=== PATIENT | male | born 1950 | race Caucasian/White ===

== ENCOUNTER → 2016-04-28 | Outpatient (CLI) | payer BC ==
[~2016-04-28] MED LIST: ASPI81TA85 PO; DICL13PA TD; GABA300C3 PO; GLIP10TA58 PO; IBUP200T45 PO; IBUP80TA PO; LANTINJ4 SC; LISI10TA4 PO; METF1000 PO; MOBI15TA PO; PERC5TAB6 PO; PRIL20CA9 PO; ROBA750T4 PO; SOMA350T PO; TYLE325T5 PO; VALI5TAB PO; VITA50003 PO; VITA500046 PO; muscle relaxer PO
[2016-04-28 11:03] LABS: ANION GAP 9 MEQ/L (8-16); BLOOD UREA NITROGEN 16 MG/DL (7-18); CALCIUM LEVEL 9.4 MG/DL (8.8-10.2); CARBON DIOXIDE LEVEL 30 MEQ/L (21-32); CHLORIDE LEVEL 100 MEQ/L (98-107); CREATININE FOR GFR 1.14 MG/DL (0.70-1.30); GLOMERULAR FILTRATION RATE > 60.0 (>49); GLUCOSE, FASTING 81 MG/DL (80-110); SODIUM LEVEL 139 MEQ/L (136-145)
== END ==
LOC: M LAB 10:20
PROVIDERS: ATTEND Family Medicine
DX: E11.65 Type 2 diabetes mellitus with hyperglycemia (principal)

== ENCOUNTER → 2016-09-30 | Outpatient (CLI) | payer BC ==
[~2016-09-30] MED LIST changes: +GABA-282 PO; -GABA300C3 PO; -GLIP10TA58 PO; +GLIP1TAB11 PO; -METF1000 PO; +METF10004 PO; +PERC5TAB12 PO; -PERC5TAB6 PO; +VITA1CAP40 PO; -VITA50003 PO
[2016-09-30 11:33] LABS: ANION GAP 5 MEQ/L (8-16); BLOOD UREA NITROGEN 22 MG/DL (7-18); CALCIUM LEVEL 9.3 MG/DL (8.8-10.2); CARBON DIOXIDE LEVEL 30 MEQ/L (21-32); CHLORIDE LEVEL 103 MEQ/L (98-107); CREATININE FOR GFR 1.13 MG/DL (0.70-1.30); GLOMERULAR FILTRATION RATE > 60.0 (>49); GLUCOSE, FASTING 75 MG/DL (80-110); POTASSIUM SERUM 4.8 MEQ/L (3.5-5.1); SODIUM LEVEL 138 MEQ/L (136-145)
== END ==
LOC: M LAB 10:34
PROVIDERS: ATTEND Family Medicine
DX: E11.65 Type 2 diabetes mellitus with hyperglycemia (principal)

== ENCOUNTER → 2016-11-16 | Outpatient (CLI) | payer BC | LOC: M WUC 16:11 | PROVIDERS: ATTEND Family Medicine | DX: R43.9 Unspecified disturbances of smell and taste (principal) ==

== ENCOUNTER → 2016-11-16 | Outpatient (REF) | payer BC | LOC: M SFHCADAM 15:08 | PROVIDERS: ATTEND Family Medicine | DX: R43.9 Unspecified disturbances of smell and taste (principal) ==

== ENCOUNTER → 2017-01-06 | Outpatient (CLI) | payer BC ==
[2017-01-06 10:50] LABS: ANION GAP 7 MEQ/L (8-16); BLOOD UREA NITROGEN 18 MG/DL (7-18); CALCIUM LEVEL 9.5 MG/DL (8.8-10.2); CARBON DIOXIDE LEVEL 29 MEQ/L (21-32); CHLORIDE LEVEL 103 MEQ/L (98-107); CREATININE FOR GFR 1.16 MG/DL (0.70-1.30); GLOMERULAR FILTRATION RATE > 60.0 (>49); GLUCOSE, FASTING 93 MG/DL (80-110); POTASSIUM SERUM 4.1 MEQ/L (3.5-5.1); SODIUM LEVEL 139 MEQ/L (136-145)
== END ==
LOC: M LAB 09:40
PROVIDERS: ATTEND Family Medicine
DX: E11.65 Type 2 diabetes mellitus with hyperglycemia (principal)

== ENCOUNTER 2017-04-20 12:14 | Emergency (ER) | payer OTHER, BC ==
[2017-04-20] MEDS: ONDANSETRON 4MG/2ML VIAL (J2405) IV (12:25)
[2017-04-20] MEDS: MORPHINE 4 MG/ML 1ML SYRINGE IV ×3 (12:26→16:02)
[2017-04-20 12:31] LABS: HEMOGLOBIN 12.6 g/dl (14.0-18.0); MEAN CORPUSCULAR HEMOGLOBIN 24.9 pg (27.0-33.0); MEAN CORPUSCULAR HGB CONC 31.5 g/dl (32.0-36.5); MEAN CORPUSCULAR VOLUME 78.9 fl (80.0-96.0); PLATELET COUNT, AUTOMATED 303 10^3/uL (150-450); RED BLOOD COUNT 5.07 10^6/uL (4.30-6.10); RED CELL DISTRIBUTION WIDTH 15.1 % (11.5-14.5); WHITE BLOOD COUNT 10.7 10^3/uL (4.0-10.0)
[2017-04-20 12:45] LABS: INR 0.95; PROTHROMBIN TIME 12.8 SECONDS (12.4-14.5)
[2017-04-20 13:08] LABS: ANION GAP 12 MEQ/L (8-16); BLOOD UREA NITROGEN 22 MG/DL (7-18); CALCIUM LEVEL 9.7 MG/DL (8.8-10.2); CARBON DIOXIDE LEVEL 26 MEQ/L (21-32); CHLORIDE LEVEL 101 MEQ/L (98-107); CREATININE FOR GFR 1.44 MG/DL (0.70-1.30); GLOMERULAR FILTRATION RATE 52.4 (>49); GLUCOSE, FASTING 122 MG/DL (80-110); POTASSIUM SERUM 3.3 MEQ/L (3.5-5.1); SODIUM LEVEL 139 MEQ/L (136-145)
== END 2017-04-20 16:06 | disposition short-term general hospital (02) ==
LOC: M ED 12:14
DX: S82.871A Displaced pilon fracture of right tibia, initial encounter for closed fracture (principal); M51.36 Other intervertebral disc degeneration, lumbar region; M51.37 Other intervertebral disc degeneration, lumbosacral region; M48.061 Spinal stenosis, lumbar region without neurogenic claudication; M48.07 Spinal stenosis, lumbosacral region; W19.XXXA Unspecified fall, initial encounter; Y92.099 Unspecified place in other non-institutional residence as the place of occurrence of the external cause; Y93.9 Activity, unspecified; E11.9 Type 2 diabetes mellitus without complications; I10 Essential (primary) hypertension; Z79.82 Long term (current) use of aspirin; Z79.4 Long term (current) use of insulin; Z79.899 Other long term (current) drug therapy
CPT/HCPCS: J2405

== ENCOUNTER 2017-05-10 14:01 | Observation (INO) | payer OTHER ==
[2017-05-10 15:33] LABS: BASO # 0.1 10^3/uL (0.0-0.2); BASO % 0.9 % (0.0-1.0); EOS # 0.3 10^3/uL (0.0-0.50); EOS % 2.9 % (0.0-3.0); HEMATOCRIT 39.9 % (42.0-52.0); HEMOGLOBIN 12.3 g/dl (14.0-18.0); IMMATURE GRANULOCYTE % 0.5 % (0-3.0); LYMPH # 1.8 10^3/uL (1.5-4.5); LYMPH % 21.4 % (24.0-44.0); MEAN CORPUSCULAR HEMOGLOBIN 24.3 pg (27.0-33.0); MEAN CORPUSCULAR HGB CONC 30.8 g/dl (32.0-36.5); MEAN CORPUSCULAR VOLUME 78.7 fl (80.0-96.0); MONO # 0.8 10^3/uL (0.0-0.8); NEUTROPHILS # 5.5 10^3/uL (1.8-7.7); NEUTROPHILS % 65.3 % (36.0-66.0); PLATELET COUNT, AUTOMATED 475 10^3/uL (150-450); RED BLOOD COUNT 5.07 10^6/uL (4.30-6.10); WHITE BLOOD COUNT 8.5 10^3/uL (4.0-10.0)
[2017-05-10 15:59] LABS: ALBUMIN 4.1 GM/DL (3.2-5.2); ALBUMIN/GLOBULIN RATIO 1.03 (1.00-1.93); ALKALINE PHOSPHATASE 91 U/L (45-117); ALT/SGPT 27 U/L (12-78); ANION GAP 8 MEQ/L (8-16); AST/SGOT 17 U/L (7-37); BILIRUBIN,DIRECT < 0.1 MG/DL (0.0-0.2); BILIRUBIN,TOTAL 0.3 MG/DL (0.2-1.0); BLOOD UREA NITROGEN 23 MG/DL (7-18); C REACTIVE PROTEIN QUANTITATIV 1.71 MG/DL (0.00-0.30); CALCIUM LEVEL 9.8 MG/DL (8.8-10.2); CARBON DIOXIDE LEVEL 28 MEQ/L (21-32); CHLORIDE LEVEL 102 MEQ/L (98-107); CREATININE FOR GFR 1.13 MG/DL (0.70-1.30); GLOMERULAR FILTRATION RATE > 60.0 (>49); GLUCOSE, FASTING 107 MG/DL (70-100); POTASSIUM SERUM 4.3 MEQ/L (3.5-5.1); SODIUM LEVEL 138 MEQ/L (136-145); TOTAL PROTEIN 8.1 GM/DL (6.4-8.2)
[2017-05-10 16:47] LABS: ERYTHROCYTE SEDIMENTATION RATE 28 mm/hr (0-20)
[2017-05-10] MEDS: CEFAZOLIN SOD 1 GM in APPROPRIATE DILUENT 1 EA IV (18:49)
[2017-05-10] MEDS ORDERED: GLUCAGON FOR INJ 1 MG VIAL (J1610) SC (19:45)
[2017-05-10] MEDS ORDERED: ONDANSETRON 4MG/2ML VIAL (J2405) IV (19:45)
[2017-05-10] MEDS ORDERED: GLUCOSE 4 GM CHEW TABLET PO (19:45)
[2017-05-10] MEDS ORDERED: DEXTROSE 50% 50 ML SYRINGE IV (19:45)
[2017-05-10] MEDS: PERCOCET 5MG/325MG TAB PO (20:11)
[2017-05-10] MEDS: HumaLOG INSULIN (NovoLOG) PER UNIT SC (21:00)
[2017-05-10] MEDS: LEVEMIR (INSULIN DETEMIR) 1 UNITS/0.01ML SC (21:00)
[2017-05-10] MEDS: HEPARIN SOD (PORCINE) 5000 UNITS/ML VIAL SC (22:04)
[2017-05-10] MEDS: OMEPRAZOLE 20 MG CAP PO (22:04)
[2017-05-10 22:05] LABS: BEDSIDE GLUCOSE 113 MG/DL (80-115)
[2017-05-10] MEDS: SENOKOT S TAB PO (22:05)
[2017-05-10] MEDS: VALSARTAN 80 MG TAB (DIOVAN) PO (22:05)
[2017-05-10] MEDS: CEFTAROLINE FOSAMIL 600 MG in D5W MINI-BAG PLUS 50 ML IV (22:20)
[2017-05-10] MEDS: ASPIRIN ENTERIC 325 MG TAB PO (22:21)
[2017-05-11 03:51] LABS: BEDSIDE GLUCOSE 55 MG/DL (80-115)
[2017-05-11 04:09] LABS: BEDSIDE GLUCOSE 81 MG/DL (80-115)
[2017-05-11 04:44] LABS: BEDSIDE GLUCOSE 110 MG/DL (80-115)
[2017-05-11] MEDS: HEPARIN SOD (PORCINE) 5000 UNITS/ML VIAL SC ×3 (05:09→21:21)
[2017-05-11 06:31] LABS: HEMATOCRIT 35.7 % (42.0-52.0); HEMOGLOBIN 11.2 g/dl (14.0-18.0); MEAN CORPUSCULAR HEMOGLOBIN 24.5 pg (27.0-33.0); MEAN CORPUSCULAR HGB CONC 31.4 g/dl (32.0-36.5); MEAN CORPUSCULAR VOLUME 78.1 fl (80.0-96.0); PLATELET COUNT, AUTOMATED 413 10^3/uL (150-450); RED BLOOD COUNT 4.57 10^6/uL (4.30-6.10); RED CELL DISTRIBUTION WIDTH 15.1 % (11.5-14.5); WHITE BLOOD COUNT 9.2 10^3/uL (4.0-10.0)
[2017-05-11 07:07] LABS: ANION GAP 9 MEQ/L (8-16); BLOOD UREA NITROGEN 22 MG/DL (7-18); C REACTIVE PROTEIN QUANTITATIV 1.59 MG/DL (0.00-0.30); CALCIUM LEVEL 9.7 MG/DL (8.8-10.2); CARBON DIOXIDE LEVEL 29 MEQ/L (21-32); CHLORIDE LEVEL 100 MEQ/L (98-107); GLOMERULAR FILTRATION RATE > 60.0 (>49); GLUCOSE, FASTING 115 MG/DL (70-100); MAGNESIUM LEVEL 2.1 MG/DL (1.8-2.4); POTASSIUM SERUM 4.4 MEQ/L (3.5-5.1); SODIUM LEVEL 138 MEQ/L (136-145)
[2017-05-11] MEDS: HumaLOG INSULIN (NovoLOG) PER UNIT SC ×4 (07:30→20:23)
[2017-05-11] MEDS: CEFTAROLINE FOSAMIL 600 MG in D5W MINI-BAG PLUS 50 ML IV ×2 (08:24→21:21)
[2017-05-11] MEDS: OMEPRAZOLE 20 MG CAP PO ×2 (08:24→21:22)
[2017-05-11] MEDS: SENOKOT S TAB PO ×2 (08:24→21:22)
[2017-05-11] MEDS: VITAMIN D 1,000 INTERNATIONAL UNITS TABLET PO (08:24)
[2017-05-11] MEDS: PERCOCET 5MG/325MG TAB PO ×3 (08:30→23:06)
[2017-05-11 12:20] LABS: BEDSIDE GLUCOSE 116 MG/DL (80-115)
[2017-05-11 17:12] LABS: BEDSIDE GLUCOSE 129 MG/DL (80-115)
[2017-05-11 20:21] LABS: BEDSIDE GLUCOSE 160 MG/DL (80-115)
[2017-05-11] MEDS: LEVEMIR (INSULIN DETEMIR) 1 UNITS/0.01ML SC (21:00)
[2017-05-11] MEDS: VALSARTAN 80 MG TAB (DIOVAN) PO (21:21)
[2017-05-11] MEDS: ASPIRIN ENTERIC 325 MG TAB PO (21:27)
[2017-05-12 01:15] LABS: BEDSIDE GLUCOSE 138 MG/DL (80-115)
[2017-05-12] MEDS: HEPARIN SOD (PORCINE) 5000 UNITS/ML VIAL SC (05:52)
[2017-05-12 06:46] LABS: BASO # 0.1 10^3/uL (0.0-0.2); BASO % 1.3 % (0.0-1.0); EOS # 0.3 10^3/uL (0.0-0.50); EOS % 3.8 % (0.0-3.0); HEMATOCRIT 37.4 % (42.0-52.0); HEMOGLOBIN 11.7 g/dl (14.0-18.0); IMMATURE GRANULOCYTE % 0.4 % (0-3.0); LYMPH # 2.3 10^3/uL (1.5-4.5); LYMPH % 31.8 % (24.0-44.0); MEAN CORPUSCULAR HEMOGLOBIN 24.7 pg (27.0-33.0); MEAN CORPUSCULAR HGB CONC 31.3 g/dl (32.0-36.5); MEAN CORPUSCULAR VOLUME 78.9 fl (80.0-96.0); MONO # 0.9 10^3/uL (0.0-0.8); MONO % 12.3 % (0.0-5.0); NEUTROPHILS # 3.6 10^3/uL (1.8-7.7); NEUTROPHILS % 50.4 % (36.0-66.0); PLATELET COUNT, AUTOMATED 384 10^3/uL (150-450); RED BLOOD COUNT 4.74 10^6/uL (4.30-6.10); WHITE BLOOD COUNT 7.1 10^3/uL (4.0-10.0)
[2017-05-12 07:05] LABS: ANION GAP 5 MEQ/L (8-16); BLOOD UREA NITROGEN 22 MG/DL (7-18); C REACTIVE PROTEIN QUANTITATIV 1.33 MG/DL (0.00-0.30); CALCIUM LEVEL 9.7 MG/DL (8.8-10.2); CARBON DIOXIDE LEVEL 31 MEQ/L (21-32); CHLORIDE LEVEL 102 MEQ/L (98-107); CREATININE FOR GFR 1.21 MG/DL (0.70-1.30); GLOMERULAR FILTRATION RATE > 60.0 (>49); GLUCOSE, FASTING 65 MG/DL (70-100); MAGNESIUM LEVEL 2.2 MG/DL (1.8-2.4); POTASSIUM SERUM 5.1 MEQ/L (3.5-5.1); SODIUM LEVEL 138 MEQ/L (136-145)
[2017-05-12] MEDS: HumaLOG INSULIN (NovoLOG) PER UNIT SC (07:28)
[2017-05-12] MEDS: LEVEMIR (INSULIN DETEMIR) 1 UNITS/0.01ML SC (09:00)
[2017-05-12] MEDS: CEFTAROLINE FOSAMIL 600 MG in D5W MINI-BAG PLUS 50 ML IV (09:41)
[2017-05-12] MEDS: VITAMIN D 1,000 INTERNATIONAL UNITS TABLET PO (09:42)
[2017-05-12] MEDS: OMEPRAZOLE 20 MG CAP PO (09:42)
[2017-05-12] MEDS: SENOKOT S TAB PO (09:42)
[2017-05-12] MEDS: PERCOCET 5MG/325MG TAB PO (11:29)
[2017-05-12] MEDS: EUCERIN 120GM CREAM TOP (11:30)
[2017-05-12 12:25] LABS: BEDSIDE GLUCOSE 139 MG/DL (80-115)
[2017-05-12] MEDS ORDERED: BACTRIM 160MG/800MG DS TAB PO (21:00)
== END 2017-05-12 14:15 | disposition home or self-care (01) ==
LOC: M ED 14:01 → M ED INP 19:36 → M MS4PR 21:47
DX: L03.115 Cellulitis of right lower limb (principal); E11.628 Type 2 diabetes mellitus with other skin complications; I10 Essential (primary) hypertension; K21.9 Gastro-esophageal reflux disease without esophagitis; S82.451A Displaced comminuted fracture of shaft of right fibula, initial encounter for closed fracture; W11.XXXA Fall on and from ladder, initial encounter; Y92.89 Other specified places as the place of occurrence of the external cause; E11.649 Type 2 diabetes mellitus with hypoglycemia without coma; E78.5 Hyperlipidemia, unspecified; E88.81 Metabolic syndrome and other insulin resistance; M51.9 Unspecified thoracic, thoracolumbar and lumbosacral intervertebral disc disorder; Z79.899 Other long term (current) drug therapy; Z79.82 Long term (current) use of aspirin; Z79.4 Long term (current) use of insulin
CPT/HCPCS: J0690

== ENCOUNTER → 2017-09-21 | Outpatient (CLI) | payer OTHER ==
[2017-09-21 10:22] LABS: HEMATOCRIT 40.4 % (42.0-52.0); HEMOGLOBIN 12.9 g/dl (13.5-17.5); MEAN CORPUSCULAR HEMOGLOBIN 24.6 pg (27.0-33.0); MEAN CORPUSCULAR HGB CONC 31.9 g/dl (32.0-36.5); MEAN CORPUSCULAR VOLUME 77.1 fl (80.0-96.0); PLATELET COUNT, AUTOMATED 299 10^3/uL (150-450); RED BLOOD COUNT 5.24 10^6/uL (4.30-6.10); RED CELL DISTRIBUTION WIDTH 14.9 % (11.5-14.5); WHITE BLOOD COUNT 7.3 10^3/uL (4.0-10.0)
[2017-09-21 10:44] LABS: ALKALINE PHOSPHATASE 111 U/L (45-117); ALT/SGPT 30 U/L (12-78); ANION GAP 7 MEQ/L (8-16); AST/SGOT 18 U/L (7-37); BILIRUBIN,TOTAL 0.4 MG/DL (0.2-1.0); BLOOD UREA NITROGEN 20 MG/DL (7-18); CALCIUM LEVEL 9.4 MG/DL (8.8-10.2); CARBON DIOXIDE LEVEL 30 MEQ/L (21-32); CHLORIDE LEVEL 101 MEQ/L (98-107); CREATININE FOR GFR 1.13 MG/DL (0.70-1.30); GLOMERULAR FILTRATION RATE > 60.0 (>49); GLUCOSE, FASTING 162 MG/DL (70-100); POTASSIUM SERUM 4.6 MEQ/L (3.5-5.1); SODIUM LEVEL 138 MEQ/L (136-145); TOTAL PROTEIN 7.8 GM/DL (6.4-8.2)
[2017-09-21 10:45] LABS: ALBUMIN 4.1 GM/DL (3.2-5.2); ALBUMIN/GLOBULIN RATIO 1.11 (1.00-1.93)
[2017-09-21 10:50] LABS: ESTIMATED AVERAGE GLUCOSE 197 MG/DL (60-110); HEMOGLOBIN A1c 8.5 %
== END ==
LOC: M LAB 09:41
DX: E11.65 Type 2 diabetes mellitus with hyperglycemia (principal); L03.115 Cellulitis of right lower limb
CPT/HCPCS: 80053

== ENCOUNTER → 2017-12-30 | Outpatient (CLI) | payer OTHER ==
[2017-12-30 09:34] LABS: ANION GAP 10 MEQ/L (8-16); BLOOD UREA NITROGEN 27 MG/DL (7-18); CALCIUM LEVEL 9.9 MG/DL (8.8-10.2); CARBON DIOXIDE LEVEL 27 MEQ/L (21-32); CHLORIDE LEVEL 102 MEQ/L (98-107); CREATININE FOR GFR 1.05 MG/DL (0.70-1.30); ESTIMATED AVERAGE GLUCOSE 206 MG/DL (60-110); GLOMERULAR FILTRATION RATE > 60.0 (>49); GLUCOSE, FASTING 178 MG/DL (70-100); HEMOGLOBIN A1c 8.8 %; POTASSIUM SERUM 4.4 MEQ/L (3.5-5.1); SODIUM LEVEL 139 MEQ/L (136-145)
== END ==
LOC: M LAB 08:22
DX: E11.65 Type 2 diabetes mellitus with hyperglycemia (principal)
CPT/HCPCS: 83036

== ENCOUNTER 2018-04-08 08:17 | Emergency (ER) | payer OTHER ==
[~2018-04-08] VITALS: Ht 185.4 cm; Wt 104.5 kg
[~2018-04-08 08:17] MED LIST changes: +ASPI-222 PO; -GABA-282 PO; +GABA-843 PO; +IBUPOTC PO; +INSULANT SC; +JARD1TAB PO; +OXYC1TAB23 PO; +OXYCOD/APAP; +SULF1TAB93 PO; +VALS1TAB46 PO; -VITA1CAP40 PO; +VITA50005 PO
[2018-04-08] MEDS ORDERED: LOSA50TA88 (08:26)
[2018-04-08] MEDS ORDERED: AMOX/K (08:26)
--- NOTE | 2018-04-08 09:12 | REP ---
Left ankle series: Four views. History: Trauma. Findings: Four views of the left ankle demonstrate soft tissue swelling about the medial malleolus. Ankle mortise is intact. There are small curvilinear bone density structures adjacent the medial malleolar tip. No donor site is appreciated but I cannot exclude a avulsion chip fracture. There is anterior soft tissue swelling as well. There is a large plantar calcaneal spur. Impression: Anterolateral soft-tissue swelling. Question chip fracture at the medial malleolus versus dystrophic calcification. Electronically Signed by Peter Torres MD 04/08/2018 09:04 A
[2018-04-08 09:39] VITALS: BP 127/71
--- NOTE | 2018-04-10 16:18 | ED PDOC ---
Post-Departure Follow-Up cruz and dr thomas faxed formal report of left ankle film for fu Dawn Egan MD Apr 10, 2018 16:18
== END 2018-04-08 09:46 | disposition home or self-care (01) ==
LOC: M ED 08:17
DX: S93.402A Sprain of unspecified ligament of left ankle, initial encounter (principal); R93.7 Abnormal findings on diagnostic imaging of other parts of musculoskeletal system; W19.XXXA Unspecified fall, initial encounter; Y92.098 Other place in other non-institutional residence as the place of occurrence of the external cause; I10 Essential (primary) hypertension; K21.9 Gastro-esophageal reflux disease without esophagitis; Z88.8 Allergy status to other drugs, medicaments and biological substances; Z79.899 Other long term (current) drug therapy; Z79.84 Long term (current) use of oral hypoglycemic drugs; Z79.82 Long term (current) use of aspirin

== ENCOUNTER → 2018-05-13 | Outpatient (CLI) | payer OTHER ==
[~2018-05-13] MED LIST changes: +AMOX/K; +LOSA50TA88
[2018-05-13 12:58] LABS: HEMATOCRIT 41.1 % (42.0-52.0); HEMOGLOBIN 12.7 g/dl (13.5-17.5); MEAN CORPUSCULAR HEMOGLOBIN 24.6 pg (27.0-33.0); MEAN CORPUSCULAR HGB CONC 30.9 g/dl (32.0-36.5); MEAN CORPUSCULAR VOLUME 79.7 fl (80.0-96.0); PLATELET COUNT, AUTOMATED 318 10^3/uL (150-450); RED BLOOD COUNT 5.16 10^6/uL (4.30-6.10); WHITE BLOOD COUNT 8.7 10^3/uL (4.0-10.0)
[2018-05-13 13:08] LABS: CREATININE, URINE 79.8 MG/DL; MALB URINE SIEMENS 14.8 MG/L; MAU/CREAT RATIO 18.5 MCG/MG (0.0-30.0)
[2018-05-13 13:15] LABS: ALBUMIN 4.3 GM/DL (3.2-5.2); ALT/SGPT 30 U/L (12-78); BILIRUBIN,TOTAL 0.4 MG/DL (0.2-1.0); BLOOD UREA NITROGEN 19 MG/DL (7-18); CALCIUM LEVEL 9.7 MG/DL (8.8-10.2); CARBON DIOXIDE LEVEL 29 MEQ/L (21-32); CHLORIDE LEVEL 97 MEQ/L (98-107); CHOLESTEROL LEVEL 238 MG/DL (<200); CREATININE FOR GFR 1.16 MG/DL (0.70-1.30); GLOMERULAR FILTRATION RATE > 60.0 (>49); GLUCOSE, FASTING 216 MG/DL (70-100); HDL CHOLESTEROL 40 MG/DL (>40); LDL CHOLESTEROL 169 MG/DL (<100); NON-HDL-C 198 MG/DL; POTASSIUM SERUM 4.6 MEQ/L (3.5-5.1); SODIUM LEVEL 134 MEQ/L (136-145); TOTAL PROTEIN 7.6 GM/DL (6.4-8.2); TRIGLYCERIDES LEVEL 144 MG/DL (<150)
[2018-05-13 14:17] LABS: HEMOGLOBIN A1c 10.3 %
== END ==
LOC: M WUC 09:02
PROVIDERS: ATTEND Family Medicine
DX: K22.70 Barrett's esophagus without dysplasia (principal); K21.9 Gastro-esophageal reflux disease without esophagitis; E11.65 Type 2 diabetes mellitus with hyperglycemia; E78.2 Mixed hyperlipidemia; Z12.5 Encounter for screening for malignant neoplasm of prostate
CPT/HCPCS: 36415; 80053; 80061; 82043; 83036; 85027; G0103

== ENCOUNTER → 2018-07-10 | Outpatient (REF) | payer OTHER ==
[~2018-07-10] MED LIST changes: +EZET10TA PO; +FLOM0.4C39 PO; +GLIM2TAB PO; +JARD1TAB3 PO; -LOSA50TA88; +LOSA50TA88 PO; +OMEP20CA3 PO; -VALS1TAB46 PO; +VALS1TAB66 PO
[2018-07-10 12:32] LABS: HEMATOCRIT 41.8 % (42.0-52.0); HEMOGLOBIN 12.7 g/dl (13.5-17.5); MEAN CORPUSCULAR HEMOGLOBIN 24.5 pg (27.0-33.0); MEAN CORPUSCULAR HGB CONC 30.4 g/dl (32.0-36.5); MEAN CORPUSCULAR VOLUME 80.7 fl (80.0-96.0); PLATELET COUNT, AUTOMATED 319 10^3/uL (150-450); RED BLOOD COUNT 5.18 10^6/uL (4.30-6.10); WHITE BLOOD COUNT 7.7 10^3/uL (4.0-10.0)
[2018-07-10 12:42] LABS: HEMOGLOBIN A1c 9.6 %
[2018-07-10 12:43] LABS: BLOOD UREA NITROGEN 16 MG/DL (7-18); CARBON DIOXIDE LEVEL 28 MEQ/L (21-32); CHLORIDE LEVEL 104 MEQ/L (98-107); GLOMERULAR FILTRATION RATE > 60.0 (>49); GLUCOSE, FASTING 294 MG/DL (70-100); POTASSIUM SERUM 4.7 MEQ/L (3.5-5.1); SODIUM LEVEL 137 MEQ/L (136-145)
[2018-07-10 12:44] LABS: ALBUMIN 4.2 GM/DL (3.2-5.2); ALT/SGPT 38 U/L (12-78); BILIRUBIN,TOTAL 0.3 MG/DL (0.2-1.0); CALCIUM LEVEL 9.7 MG/DL (8.8-10.2); CHOLESTEROL LEVEL 217 MG/DL (<200); CHOLESTEROL RISK RATIO 5.292 (<5); FREE T4 1.02 NG/DL (0.76-1.46); HDL CHOLESTEROL 41 MG/DL (>40); LDL CHOLESTEROL 126 MG/DL (<100); NON-HDL-C 176 MG/DL; TOTAL PROTEIN 7.5 GM/DL (6.4-8.2); TRIGLYCERIDES LEVEL 251 MG/DL (<150)
[2018-07-10 12:45] LABS: FOLATE 17.5 NG/ML (>5.4); VITAMIN B12 LEVEL 555 PG/ML (247-911)
== END ==
LOC: M SFHCADAM 10:32
PROVIDERS: ATTEND Family Medicine
DX: E11.65 Type 2 diabetes mellitus with hyperglycemia (principal); E78.2 Mixed hyperlipidemia; R29.818 Other symptoms and signs involving the nervous system

== ENCOUNTER 2018-07-18 09:32 | Day surgery (SDC) | payer OTHER ==
[~2018-07-18] VITALS: Ht 188 cm; Wt 100.2 kg
[~2018-07-18 09:32] MED LIST changes: +SIMETHICONE 40MG/0.6ML DROPS 30ML As Ordered ONE
[2018-07-18] MEDS ORDERED: NS 1,000 ML IV ONE (10:00)
[2018-07-18] MEDS ORDERED: fentaNYL 100 MCG/2 ML INJECTION (J3010) As Ordered ONE (11:37)
[2018-07-18] MEDS ORDERED: PROPOFOL 500 MG/50 ML VIAL As Ordered ONE (11:37)
[2018-07-18] MEDS ORDERED: LIDOCAINE 2% INJ 100 MG/5 ML SDV (FOR ANES.) As Ordered ONE (11:37)
--- NOTE | 2018-07-18 11:51 | ROOR ---
Patient Name: Bo Moseley Procedure Date: 07/18/2018 11:35 AM Date of : 1950 Age: 67 Room: [facility] Gender: Male Note Status: Finalized Procedure: Upper GI endoscopy Indications: Surveillance for malignancy due to personal history of Celeste's esophagus, Heartburn Providers: Joe WILL MD Referring MD: Kevon Manuel MD Requesting Provider: Medicines: Monitored Anesthesia Care Complications: No immediate complications. Procedure: Pre-Anesthesia Assessment: - The heart rate, respiratory rate, oxygen saturations, blood pressure, adequacy of pulmonary ventilation, and response to care were monitored throughout the procedure. The Endoscope was introduced through the mouth, and advanced to the second part of duodenum. The upper GI endoscopy was accomplished without difficulty. The patient tolerated the procedure well. Findings: The Z-line was variable and was found 40 cm from the incisors. Biopsies were taken with a cold forceps for histology. The exam of the esophagus was otherwise normal. Small Hiatal Hernia. Multiple 4 to 5 mm semi-sessile polyps were found in the gastric fundus and in the gastric body. This was biopsied with a cold forceps for histology. The exam of the stomach was otherwise normal. The examined duodenum was normal. Impression: - Z-line variable, 40 cm from the incisors. Biopsied. - Small Hiatal Hernia. - Multiple gastric polyps. Biopsied. - Normal examined duodenum. Recommendation: - Telephone endoscopist for pathology results in 2 weeks. - Continue present medications. - Repeat upper endoscopy in 3 years for surveillance. Joe Will MD Joe WILL MD 07/18/2018 11:50:55 AM Electronically signed by Joe WILL MD Number of Addenda: 0 Note Initiated On: 07/18/2018 11:35 AM Estimated Blood Loss: Estimated blood loss: none.
--- NOTE | 2018-07-18 12:05 | ROOR ---
Patient Name: Bo Moseley Procedure Date: 07/18/2018 11:35 AM Date of : 1950 Age: 67 Room: [facility] Gender: Male Note Status: Finalized Procedure: Colonoscopy Indications: Screening for colorectal malignant neoplasm Providers: Joe WILL MD Referring MD: Kevon Manuel MD Requesting Provider: Medicines: Monitored Anesthesia Care Complications: No immediate complications. Procedure: Pre-Anesthesia Assessment: - The heart rate, respiratory rate, oxygen saturations, blood pressure, adequacy of pulmonary ventilation, and response to care were monitored throughout the procedure. The Colonoscope was introduced through the anus and advanced to the terminal ileum, with identification of the appendiceal orifice and IC valve. The colonoscopy was performed without difficulty. The patient tolerated the procedure well. The quality of the bowel preparation was good. Findings: The perianal and digital rectal examinations were normal. Mild sigmoid diverticulosis and small internal hemorrhoids. The entire examined colon appeared normal on direct and retroflexion views. Impression: - Mild sigmoid diverticulosis and small internal hemorrhoids. - The entire examined colon is normal on direct and retroflexion views. - No specimens collected. Recommendation: - Repeat colonoscopy in 10 years for screening purposes. Joe Will MD Joe WILL MD 07/18/2018 12:05:35 PM Electronically signed by Joe WILL MD Number of Addenda: 0 Note Initiated On: 07/18/2018 11:35 AM Estimated Blood Loss: Estimated blood loss: none.
[2018-07-18 12:20] VITALS: BP 138/97
== END 2018-07-18 12:35 | disposition home or self-care (01) ==
LOC: M OPP 09:32
PROVIDERS: ATTEND Internal Medicine Gastroenterology
DX: Z12.11 Encounter for screening for malignant neoplasm of colon (principal); K57.30 Diverticulosis of large intestine without perforation or abscess without bleeding; K44.9 Diaphragmatic hernia without obstruction or gangrene; K22.8 Other specified diseases of esophagus; K22.70 Barrett's esophagus without dysplasia; K31.7 Polyp of stomach and duodenum; R12 Heartburn; Z79.82 Long term (current) use of aspirin; Z79.84 Long term (current) use of oral hypoglycemic drugs; A88.8 Other specified viral infections of central nervous system
CPT/HCPCS: 43239; 45378; 88305; J3010

== ENCOUNTER 2018-08-02 19:59 | Emergency (ER) | payer OTHER ==
[~2018-08-02] VITALS: Ht 185.4 cm; Wt 101.8 kg
[2018-08-02 19:59] VITALS: BP 159/79
[~2018-08-02 19:59] MED LIST changes: -SIMETHICONE 40MG/0.6ML DROPS 30ML As Ordered ONE
[2018-08-02] MEDS ORDERED: ADACEL/BOOSTRIX VACCINE (DIPHTH/PERTUSS/ACELL/TETANUS)0.5ML SYR (90715) IM ONE (20:30)
[2018-08-02] MEDS ORDERED: NEOSPORIN OINT 0.9 GM PKT (FLOOR STOCK) TOP ONE (20:30)
== END 2018-08-02 20:55 | disposition home or self-care (01) ==
LOC: M ED 19:59
DX: S91.332A Puncture wound without foreign body, left foot, initial encounter (principal); X58.XXXA Exposure to other specified factors, initial encounter; Y92.89 Other specified places as the place of occurrence of the external cause; Y93.89 Activity, other specified; Y99.9 Unspecified external cause status; E11.9 Type 2 diabetes mellitus without complications; I10 Essential (primary) hypertension; K21.9 Gastro-esophageal reflux disease without esophagitis; M48.00 Spinal stenosis, site unspecified; M54.30 Sciatica, unspecified side; Z79.82 Long term (current) use of aspirin; Z79.84 Long term (current) use of oral hypoglycemic drugs; Z79.899 Other long term (current) drug therapy; Z88.8 Allergy status to other drugs, medicaments and biological substances

== ENCOUNTER 2018-08-05 08:20 | Emergency (ER) | payer OTHER ==
[~2018-08-05] VITALS: Ht 185.4 cm; Wt 100.5 kg
[2018-08-05 09:55] LABS: BASO # 0.1 10^3/uL (0.0-0.2); BASO % 0.5 % (0.0-1.0); EOS # 0.1 10^3/uL (0.0-0.50); EOS % 0.7 % (0.0-3.0); HEMATOCRIT 38.4 % (42.0-52.0); LYMPH % 17.6 % (24.0-44.0); MEAN CORPUSCULAR HEMOGLOBIN 24.6 pg (27.0-33.0); MEAN CORPUSCULAR HGB CONC 31.3 g/dl (32.0-36.5); MEAN CORPUSCULAR VOLUME 78.7 fl (80.0-96.0); MONO # 1.2 10^3/uL (0.0-0.8); NEUTROPHILS # 7.7 10^3/uL (1.8-7.7); NEUTROPHILS % 69.8 % (36.0-66.0); PLATELET COUNT, AUTOMATED 283 10^3/uL (150-450); RED BLOOD COUNT 4.88 10^6/uL (4.30-6.10); WHITE BLOOD COUNT 11.1 10^3/uL (4.0-10.0)
[2018-08-05 10:16] LABS: ALBUMIN 3.9 GM/DL (3.2-5.2); ALT/SGPT 23 U/L (12-78); BILIRUBIN,TOTAL 0.5 MG/DL (0.2-1.0); BLOOD UREA NITROGEN 20 MG/DL (7-18); CALCIUM LEVEL 9.2 MG/DL (8.8-10.2); CARBON DIOXIDE LEVEL 26 MEQ/L (21-32); CHLORIDE LEVEL 100 MEQ/L (98-107); GLOMERULAR FILTRATION RATE > 60.0 (>49); GLUCOSE, FASTING 335 MG/DL (70-100); SODIUM LEVEL 134 MEQ/L (136-145); TOTAL PROTEIN 7.1 GM/DL (6.4-8.2)
[2018-08-05 10:30] LABS: ERYTHROCYTE SEDIMENTATION RATE 35 mm/hr (0-20)
[2018-08-05] MEDS ORDERED: VITA500030 PO (11:08)
[2018-08-05] MEDS ORDERED: MULTCAP PO (11:08)
[2018-08-05] MEDS ORDERED: NS 1,000 ML IV ONE (11:15)
[2018-08-05] MEDS ORDERED: CLINDAMYCIN 900 MG in APPROPRIATE DILUENT 1 EA IV ONE (11:15)
[2018-08-05] MEDS ORDERED: cefTRIAXone SOD 2 GM in D5W MINI-BAG PLUS 50 ML IV ONE (11:15)
[2018-08-05 14:15] VITALS: BP 147/89
== END 2018-08-05 14:23 | disposition home or self-care (01) ==
LOC: M ED 08:20
DX: E11.9 Type 2 diabetes mellitus without complications (principal); L03.126 Acute lymphangitis of left lower limb; Z79.899 Other long term (current) drug therapy; Z79.82 Long term (current) use of aspirin; Z88.8 Allergy status to other drugs, medicaments and biological substances
CPT/HCPCS: 80053; 85025; 85652; 86140; 87040; 96365; 96366; 96368; 99284; J0696

== ENCOUNTER → 2018-08-06 | Outpatient (REF) | payer OTHER ==
[~2018-08-06] MED LIST changes: +AMOX875T2 PO; +LEVA750T7 PO; +MULTCAP PO; +VITA500030 PO
[2018-08-06 19:20] LABS: BASO # 0.1 10^3/uL (0.0-0.2); BASO % 0.4 % (0.0-1.0); EOS # 0.1 10^3/uL (0.0-0.50); EOS % 0.7 % (0.0-3.0); HEMATOCRIT 41.3 % (42.0-52.0); HEMOGLOBIN 12.6 g/dl (13.5-17.5); LYMPH # 2.3 10^3/uL (1.5-4.5); LYMPH % 17.2 % (24.0-44.0); MEAN CORPUSCULAR HEMOGLOBIN 24.5 pg (27.0-33.0); MEAN CORPUSCULAR HGB CONC 30.5 g/dl (32.0-36.5); MEAN CORPUSCULAR VOLUME 80.4 fl (80.0-96.0); MONO # 1.3 10^3/uL (0.0-0.8); MONO % 9.8 % (0.0-5.0); NEUTROPHILS # 9.5 10^3/uL (1.8-7.7); NEUTROPHILS % 71.4 % (36.0-66.0); PLATELET COUNT, AUTOMATED 338 10^3/uL (150-450); RED BLOOD COUNT 5.14 10^6/uL (4.30-6.10); WHITE BLOOD COUNT 13.3 10^3/uL (4.0-10.0)
[2018-08-06 19:40] LABS: BLOOD UREA NITROGEN 17 MG/DL (7-18); CALCIUM LEVEL 9.6 MG/DL (8.8-10.2); CARBON DIOXIDE LEVEL 28 MEQ/L (21-32); CHLORIDE LEVEL 100 MEQ/L (98-107); CREATININE FOR GFR 1.12 MG/DL (0.70-1.30); GLOMERULAR FILTRATION RATE > 60.0 (>49); GLUCOSE, FASTING 174 MG/DL (70-100); POTASSIUM SERUM 4.5 MEQ/L (3.5-5.1); SODIUM LEVEL 135 MEQ/L (136-145)
== END ==
LOC: M SFHCADAM 17:10
PROVIDERS: ATTEND Family Medicine
DX: S91.332D Puncture wound without foreign body, left foot, subsequent encounter (principal); X58.XXXD Exposure to other specified factors, subsequent encounter; E11.65 Type 2 diabetes mellitus with hyperglycemia

== ENCOUNTER → 2018-08-06 | Outpatient (CLI) | payer OTHER ==
--- NOTE | 2018-08-07 03:53 | REP ---
Clinical: Trauma. Puncture wound. Technique: AP, lateral, bilateral oblique views of the left foot. Findings: Age-related arthritic degenerative changes are appreciated. No acute fracture or dislocation. No subcutaneous emphysema or radiodense foreign body. Impression: Degenerative changes. No obvious acute trauma. Electronically Signed by Alonso Rosario MD 08/07/2018 03:44 A
== END ==
LOC: M ADAMS 17:11
PROVIDERS: ATTEND Family Medicine
DX: S91.322D Laceration with foreign body, left foot, subsequent encounter (principal); X58.XXXD Exposure to other specified factors, subsequent encounter

== ENCOUNTER → 2018-08-07 | Outpatient (CLI) | payer OTHER ==
--- NOTE | 2018-08-08 06:15 | REP ---
Clinical: Pain. Puncture wound. Technique: [place] scale and color evaluation using linear high frequency transducer. Findings: Directed ultrasound examination of the left foot in the regions of maximal tenderness and erythema were performed. Soft tissue edema is noted without fluid collection, subcutaneous emphysema, or foreign body. Impression: Subcutaneous edema. No collection or foreign body. Electronically Signed by Alonso Rosario MD 08/08/2018 06:08 A
== END ==
LOC: M RAD 12:23
PROVIDERS: ATTEND Family Medicine
DX: S91.332D Puncture wound without foreign body, left foot, subsequent encounter (principal); X58.XXXD Exposure to other specified factors, subsequent encounter

== ENCOUNTER 2018-08-08 11:38 | Inpatient (IN) | payer OTHER ==
[~2018-08-08] VITALS: Ht 185.4 cm; Wt 98.5 kg
[2018-08-08] MEDS: EZETIMIBE 10 MG TAB (ZETIA) PO SCH (09:00)
[~2018-08-08 11:38] MED LIST changes: -AMOX875T2 PO; -LEVA750T7 PO
[2018-08-08] MEDS: HumaLOG INSULIN (NovoLOG) PER UNIT SC SCH ×2 (12:00→17:30)
[2018-08-08] MEDS ORDERED: DEXTROSE 50% 50 ML SYRINGE IV PRN (12:00)
[2018-08-08] MEDS ORDERED: GLUCOSE 4 GM CHEW TABLET PO PRN (12:00)
[2018-08-08] MEDS ORDERED: GLUCAGON FOR INJ 1 MG VIAL (J1610) SC PRN (12:00)
--- NOTE | 2018-08-08 12:19 | HPE ---
DATE OF ADMISSION: 08/08/2018 Bo was admitted from the office. His history and physical was generated in the office-based electronic medical record.
[2018-08-08 13:00] VITALS: BP 137/83
[2018-08-08] MEDS ORDERED: AMOX875T2 PO (13:49)
[2018-08-08 14:00] VITALS: BP 144/85
[2018-08-08 14:02] LABS: BASO # 0.1 10^3/uL (0.0-0.2); BASO % 0.4 % (0.0-1.0); EOS # 0.1 10^3/uL (0.0-0.50); EOS % 0.7 % (0.0-3.0); HEMATOCRIT 38.5 % (42.0-52.0); HEMOGLOBIN 12.2 g/dl (13.5-17.5); LYMPH # 1.4 10^3/uL (1.5-4.5); LYMPH % 10.9 % (24.0-44.0); MEAN CORPUSCULAR HEMOGLOBIN 24.9 pg (27.0-33.0); MEAN CORPUSCULAR HGB CONC 31.7 g/dl (32.0-36.5); MEAN CORPUSCULAR VOLUME 78.7 fl (80.0-96.0); MONO # 1.1 10^3/uL (0.0-0.8); MONO % 8.1 % (0.0-5.0); NEUTROPHILS # 10.3 10^3/uL (1.8-7.7); NEUTROPHILS % 79.3 % (36.0-66.0); PLATELET COUNT, AUTOMATED 319 10^3/uL (150-450); RED BLOOD COUNT 4.89 10^6/uL (4.30-6.10)
[2018-08-08 14:13] LABS: INR 0.94; PARTIAL THROMBOPLASTIN TIME 29.2 SECONDS (25.4-37.6); PROTHROMBIN TIME 12.7 SECONDS (12.1-14.4)
[2018-08-08 14:29] LABS: BLOOD UREA NITROGEN 19 MG/DL (7-18); CALCIUM LEVEL 9.9 MG/DL (8.8-10.2); CARBON DIOXIDE LEVEL 26 MEQ/L (21-32); CHLORIDE LEVEL 102 MEQ/L (98-107); CREATININE FOR GFR 1.15 MG/DL (0.70-1.30); GLOMERULAR FILTRATION RATE > 60.0 (>49); GLUCOSE, FASTING 205 MG/DL (70-100); POTASSIUM SERUM 3.7 MEQ/L (3.5-5.1); SODIUM LEVEL 136 MEQ/L (136-145)
[2018-08-08 14:30] LABS: ALBUMIN 3.5 GM/DL (3.2-5.2); ALT/SGPT 26 U/L (12-78); BILIRUBIN,TOTAL 0.3 MG/DL (0.2-1.0)
[2018-08-08 18:20] VITALS: BP 143/89
[2018-08-08] MEDS: CEFTAROLINE FOSAMIL 600 MG in D5W MINI-BAG PLUS 50 ML IV SCH (18:24)
--- NOTE | 2018-08-08 19:00 | CR ---
DATE OF CONSULTATION: 08/08/2018 REASON FOR CONSULTATION: Left foot puncture wound and cellulitis. HISTORY OF PRESENT ILLNESS: Bo Moseley is a pleasant 67-year-old male who was admitted from Dr. Manuel's office today due to worsening condition following a puncture wound. He states he stepped on this nail on 08/02/2018. This was a franklyn nail, which he did remove from his foot in total. He went to the emergency room albeit after going out to eat for dinner that night, at which time he was updated on his tetanus shot and given topical antibiotic ointment. He returned to the emergency room three days later, as the foot was becoming more red and did not seem to be healing well. He was given clindamycin and ceftriaxone at that time, with followup for his primary doctor the next day. He was started on clindamycin following this, on 08/06/2018. He has imaging studies, x-ray and ultrasound, both of which were negative for abscess or obvious foreign body. On 08/08/2018, today, he was seen by Dr. Manuel, who noted that there was worsening redness to the foot with streaking, and he was sent to the hospital for admission. PAST MEDICAL HISTORY: Significant for: 1. Diabetes with neuropathy. 2. Hyperlipidemia. 3. Benign prostatic hypertrophy (BPH). 4. Gastroesophageal reflux disease (GERD). PAST SURGICAL HISTORY: Includes: Right meniscus repair. ALLERGIES: Include ATORVASTATIN and GABAPENTIN. VITAL SIGNS ON EXAM: Patient's at admission was 98.3, afebrile. Other vitals are stable. LABORATORIES: White blood cell count today is 13. CRP is 11.5. Foot x-ray and ultrasound are both reviewed. No foreign body is noted. No obvious signs of abscess, soft tissue gas, or osteomyelitis. LOWER EXTREMITY EXAMINATION: There is an ulcer on the plantar aspect of the left second metatarsal. On probing, this is 2 cm deep. There is trace purulence. There is some necrotic and fibrous tissue within the wound. Wound does not probe to bone. There is erythema to the entire second digit, with extension under the dorsal foot, with one streak going up to approximately the lower third of the leg. There is diminished sensation to the left foot. ASSESSMENT: A 67-year-old diabetic male with neuropathy with puncture wound left foot and cellulitis. PLAN: An MRI has been ordered. Await this. If abscess if found on MRI, will plan operative incision and drainage. A wound swab culture was taken. Will follow. If there is further erythema or the erythema does not improve, would also plan for incision and drainage. Will monitor for improvement with surgical planning to follow. Continue currently on empiric Teflaro. Thank you for the consultation.
--- NOTE | 2018-08-08 19:44 | REP ---
MRI left foot without contrast: History: Question osteomyelitis. Comparison left foot radiographs are from August 06, 2018. Technique: Axial, coronal, and sagittal imaging planes are utilized. T1, proton density and T2-weighted scans were obtained in the usual fashion with and without fat saturation. 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 No acute erosive changes seen. No joint fluid is seen. There is a diffuse edema pattern around the second and third MTP joints. T1 and T2-weighted signal intensity is normal in the phalanges and metatarsals however. There is no evidence to suggest acute osteomyelitis. No abscess is seen. Impression: No evidence to suggest acute osteomyelitis. Forefoot swelling. Osteoarthritic changes. Electronically Signed by Peter Torres MD 08/08/2018 08:33 P
[2018-08-08] MEDS ORDERED: HumaLOG INSULIN (NovoLOG) PER UNIT SC SCH (21:00)
[2018-08-08] MEDS ORDERED: TAMSULOSIN 0.4 MG CAP PO SCH (21:00)
[2018-08-08] MEDS ORDERED: LEVEMIR (INSULIN DETEMIR) 1 UNITS/0.01ML SC SCH (21:00)
[2018-08-08] MEDS: LOSARTAN 50 MG TAB PO SCH (21:51)
[2018-08-08 22:00] VITALS: BP 134/91
[2018-08-09 02:00] VITALS: BP 136/89
[2018-08-09] MEDS: ACETAMINOPHEN 500 MG TAB PO PRN (02:30)
[2018-08-09] MEDS: CEFTAROLINE FOSAMIL 600 MG in D5W MINI-BAG PLUS 50 ML IV SCH ×2 (04:50→15:18)
[2018-08-09 06:00] VITALS: BP 101/72
[2018-08-09 06:50] LABS: BASO # 0.1 10^3/uL (0.0-0.2); BASO % 0.5 % (0.0-1.0); EOS # 0.2 10^3/uL (0.0-0.50); EOS % 1.5 % (0.0-3.0); HEMATOCRIT 37.2 % (42.0-52.0); HEMOGLOBIN 11.8 g/dl (13.5-17.5); LYMPH # 2.2 10^3/uL (1.5-4.5); MEAN CORPUSCULAR HEMOGLOBIN 24.8 pg (27.0-33.0); MEAN CORPUSCULAR HGB CONC 31.7 g/dl (32.0-36.5); MEAN CORPUSCULAR VOLUME 78.3 fl (80.0-96.0); MONO % 9.7 % (0.0-5.0); NEUTROPHILS # 6.5 10^3/uL (1.8-7.7); PLATELET COUNT, AUTOMATED 315 10^3/uL (150-450); RED BLOOD COUNT 4.75 10^6/uL (4.30-6.10); WHITE BLOOD COUNT 9.8 10^3/uL (4.0-10.0)
[2018-08-09 07:16] LABS: BLOOD UREA NITROGEN 20 MG/DL (7-18); CALCIUM LEVEL 9.3 MG/DL (8.8-10.2); CARBON DIOXIDE LEVEL 24 MEQ/L (21-32); CHLORIDE LEVEL 103 MEQ/L (98-107); CREATININE FOR GFR 0.97 MG/DL (0.70-1.30); GLOMERULAR FILTRATION RATE > 60.0 (>49); GLUCOSE, FASTING 135 MG/DL (70-100); SODIUM LEVEL 136 MEQ/L (136-145)
[2018-08-09] MEDS: HumaLOG INSULIN (NovoLOG) PER UNIT SC SCH ×2 (07:30→12:00)
[2018-08-09] MEDS: ENOXAPARIN 40 MG/0.4 ML SYRINGE (J1650) SC SCH (09:06)
[2018-08-09] MEDS: OMEPRAZOLE 20 MG CAP PO SCH (09:06)
[2018-08-09] MEDS: EZETIMIBE 10 MG TAB (ZETIA) PO SCH (09:06)
[2018-08-09] MEDS: TAMSULOSIN 0.4 MG CAP PO SCH (09:36)
[2018-08-09 10:00] VITALS: BP 172/84
--- NOTE | 2018-08-09 12:42 | IPN ---
DATE: 08/09/2018 Patient seen and examined at bedside. Denies overnight complaints. Denies nausea, vomiting, fever, or chills. Vital signs are reviewed. He has remained afebrile. Labs are reviewed. White blood cell count is improved to 9.8. CRP is slightly down at 10.9. MRI report and images are reviewed. No signs of osteomyelitis. No signs of drainable abscess, and no foreign body is noted. There is swelling noted around the 2nd and 3rd metatarsophalangeal joints. Lower extremity examination: Erythema has receded from demarcation yesterday. There still remains erythema and edema to the 2nd toe. Plantar wound is inspected. No purulent drainage is noted with expression. ASSESSMENT: 67-year-old diabetic male status post puncture wound with cellulitis, left foot. PLAN: Continue current antibiotics. Culture results are pending. At this time, does not appear that he will need operative incision and drainage, if infection continues to improve; however, continue close monitoring. Will follow.
[2018-08-09 14:00] VITALS: BP 170/80
--- NOTE | 2018-08-09 14:23 | IPNPDOC ---
Subjective Date Seen The patient was seen on 08/09/18. Subjective Chief Complaint/HPI foot is less red Constitutional: Denies: Chills ENT: Denies: Head Aches Skin: Reports: Rash (red zone on foot is smaller) Pulmonary: Denies: Dyspnea Cardiovascular: Denies: Chest Pain, Orthopnea Gastrointestinal: Denies: Nausea, Abdominal Pain, Diarrhea Hematologic: Denies: Bruising Endocrine: Denies: Polydipsia, Polyuria Neurological: Denies: Weakness Psych: Reports: Mood Normal Objective Physical Examination General Exam: Positive: Alert Eye Exam: Positive: PERRLA, EOMI Neck Exam: Positive: Supple; Negative: thyromegaly Chest Exam: Positive: Clear to auscultation Heart Exam: Positive: Rate Normal; Negative: Murmurs Skin Exam: Positive: Nl turgor and temperature, Rash (erythematous zone on foot is smaller as marked. wick is present in puncture wound, placed by Pulmonary Fellow) Neuro Exam: Positive: Normal Speech Psych Exam: Positive: Mental status NL A-FIB/CHADSVASC A-FIB History Current/History of A-Fib/PAF?: No Assessment /Plan Problems (1) Cellulitis of foot Status: Acute Response to Treatment: Improving Problem Specific Plan: Consult Specialist Problem Text: Podiatry consulted. Wick placed in puncture. Skin erythema and s welling at left 2nd toe have improved. (2) Hypertension Status: Chronic Response to Treatment: Stable Problem Text: continue Losartan 50 (3) Type 2 diabetes mellitus Status: Chronic Response to Treatment: Stable Problem Text: patient has experienced hypoglycemia in past in hospital with evening insulin and refused ordered basal insulin. will restart metformin, monitor glucose bid. jardiance not on formulary, if glucose is high then add his personal supply to improve control in hospital. Plan/VTE VTE Prophylaxis Ordered?: Yes Plan Anticipated Discharge: Home VS, I&O, 24H, Fishbone Vital Signs/I&O Vital Signs Date Time Temp Pulse Resp B/P (MAP) Pulse Ox O2 Delivery O2 Flow Rate FiO2 08/09/18 14:00 97.7 100 18 170/80 (110) 96 I&O- Last 24 Hours up to 6 AM 08/09/18 06:00 Intake Total 1150 ml Output Total 0 ml Balance 1150 ml Laboratory Data 24H LABS Laboratory Tests 2 08/08/18 16:42: Bedside Glucose (Misc Panel) 127H 08/08/18 21:38: Bedside Glucose (Misc Panel) 219H 08/09/18 06:38: Immature Granulocyte % (Auto) 0.3, White Blood Count 9.8, Red Blood Count 4.75, Hemoglobin 11.8L, Hematocrit 37.2L, Mean Corpuscular Volume 78.3L, Mean Corpuscular Hemoglobin 24.8L, Mean Corpuscular Hemoglobin Concent 31.7L, Red Cell Distribution Width 14.6H, Platelet Count 315, Neutrophils (%) (Auto) 66.0, Lymphocytes (%) (Auto) 22.0L, Monocytes (%) (Auto) 9.7H, Eosinophils (%) (Auto) 1.5, Basophils (%) (Auto) 0.5, Neutrophils # (Auto) 6.5, Lymphocytes # (Auto) 2.2, Monocytes # (Auto) 1.0H, Eosinophils # (Auto) 0.2, Basophils # (Auto) 0.1, Nucleated Red Blood Cells % (auto) 0.0, Anion Gap 9, Glomerular Filtration Rate > 60.0, Blood Urea Nitrogen 20H, Creatinine 0.97, Sodium Level 136, Potassium Level 4.0, Chloride Level 103, Carbon Dioxide Level 24, Calcium Level 9.3, C- Reactive Protein, Quantitative 10.90H 08/09/18 11:13: Bedside Glucose (Misc Panel) 158H CBC/BMP Laboratory Tests 08/09/18 06:38 Red Blood Count 4.75, Mean Corpuscular Volume 78.3 L, Mean Corpuscular Hemoglobin 24.8 L, Mean Corpuscular Hemoglobin Concent 31.7 L, Red Cell Distribution Width 14.6 H, Neutrophils (%) (Auto) 66.0, Lymphocytes (%) (Auto) 22.0 L, Monocytes (%) (Auto) 9.7 H, Eosinophils (%) (Auto) 1.5, Basophils (%) (Auto) 0.5, Neutrophils # (Auto) 6.5, Lymphocytes # (Auto) 2.2, Monocytes # (Auto) 1.0 H, Eosinophils # (Auto) 0.2, Basophils # (Auto) 0.1, Calcium Level 9.3 Microbiology Microbiology 08/08/18 Blood Culture - Preliminary, Resulted No growth after 24 hours . All specim... 08/08/18 Blood Culture - Preliminary, Resulted No growth after 24 hours . All specim... 08/08/18 Gram Stain - Final, Resulted 08/08/18 Wound Culture, Resulted Pending Shayne Harris MD August 09, 2018 14:23
[2018-08-09] MEDS: metFORMIN (GLUCOPHAGE) 1000 MG TABLET PO SCH (17:54)
[2018-08-09 18:00] VITALS: BP 164/83
[2018-08-09] MEDS: LOSARTAN 50 MG TAB PO SCH (21:58)
[2018-08-09 22:00] VITALS: BP 139/88
[2018-08-10 02:00] VITALS: BP 155/89
[2018-08-10] MEDS: CEFTAROLINE FOSAMIL 600 MG in D5W MINI-BAG PLUS 50 ML IV SCH ×2 (04:08→15:48)
[2018-08-10 06:00] VITALS: BP 130/79
[2018-08-10 06:31] LABS: BASO # 0.1 10^3/uL (0.0-0.2); BASO % 0.6 % (0.0-1.0); EOS # 0.2 10^3/uL (0.0-0.50); EOS % 1.6 % (0.0-3.0); HEMATOCRIT 36.4 % (42.0-52.0); HEMOGLOBIN 11.4 g/dl (13.5-17.5); LYMPH # 1.8 10^3/uL (1.5-4.5); LYMPH % 18.9 % (24.0-44.0); MEAN CORPUSCULAR HEMOGLOBIN 24.2 pg (27.0-33.0); MEAN CORPUSCULAR HGB CONC 31.3 g/dl (32.0-36.5); MEAN CORPUSCULAR VOLUME 77.3 fl (80.0-96.0); MONO % 9.9 % (0.0-5.0); NEUTROPHILS # 6.7 10^3/uL (1.8-7.7); NEUTROPHILS % 68.6 % (36.0-66.0); PLATELET COUNT, AUTOMATED 351 10^3/uL (150-450); RED BLOOD COUNT 4.71 10^6/uL (4.30-6.10); WHITE BLOOD COUNT 9.7 10^3/uL (4.0-10.0)
[2018-08-10 06:54] LABS: BLOOD UREA NITROGEN 19 MG/DL (7-18); CALCIUM LEVEL 9.2 MG/DL (8.8-10.2); CARBON DIOXIDE LEVEL 27 MEQ/L (21-32); CHLORIDE LEVEL 101 MEQ/L (98-107); CREATININE FOR GFR 1.06 MG/DL (0.70-1.30); GLOMERULAR FILTRATION RATE > 60.0 (>49); GLUCOSE, FASTING 180 MG/DL (70-100); SODIUM LEVEL 135 MEQ/L (136-145)
[2018-08-10] MEDS: metFORMIN (GLUCOPHAGE) 500 MG TAB PO SCH (08:49)
[2018-08-10] MEDS: EZETIMIBE 10 MG TAB (ZETIA) PO SCH (08:49)
[2018-08-10] MEDS: TAMSULOSIN 0.4 MG CAP PO SCH (08:49)
[2018-08-10] MEDS: OMEPRAZOLE 20 MG CAP PO SCH (08:49)
[2018-08-10] MEDS: ENOXAPARIN 40 MG/0.4 ML SYRINGE (J1650) SC SCH (08:50)
[2018-08-10 10:00] VITALS: BP 128/72
--- NOTE | 2018-08-10 13:08 | IPNPDOC ---
Subjective Date Seen The patient was seen on 08/10/18. Subjective Chief Complaint/HPI less red, less swollen Constitutional: Denies: Chills ENT: Denies: Head Aches Pulmonary: Denies: Dyspnea, Cough Cardiovascular: Denies: Chest Pain Gastrointestinal: Denies: Nausea, Vomiting, Abdominal Pain Endocrine: Denies: Polydipsia Neurological: Denies: Weakness, Numbness, Change in speech Psych: Reports: Mood Normal Objective Physical Examination General Exam: Positive: Alert Eye Exam: Positive: PERRLA, EOMI Neck Exam: Positive: Supple; Negative: thyromegaly Skin Exam: Positive: Nl turgor and temperature, Rash (erythematous zone on foot is smaller as marked, compared to 08/09, even smaller than when marked earlier today. wick is present in puncture wound, placed by [employer], Dr. Alicea) Neuro Exam: Positive: Normal Speech Psych Exam: Positive: Mental status NL A-FIB/CHADSVASC A-FIB History Current/History of A-Fib/PAF?: No Assessment /Plan Problems (1) Cellulitis of foot Status: Acute Response to Treatment: Improving Problem Specific Plan: Consult Specialist Problem Text: Podiatry consulted. Wick placed in puncture. Skin erythema and swelling at left 2nd toe have improved. (2) Hypertension Status: Chronic Response to Treatment: Stable Problem Text: continue Losartan 50 (3) Type 2 diabetes mellitus Status: Chronic Response to Treatment: Stable Problem Text: patient has experienced hypoglycemia in past in hospital with evening insulin and refused ordered basal insulin. will restart metformin, monitor glucose bid. jardiance not on formulary, if glucose is high then add his personal supply to improve control in hospital. since patient is not permitting prn use of small doses of novolog will stop bid FSBS Plan/VTE VTE Prophylaxis Ordered?: Yes Plan Anticipated Discharge: Home VS, I&O, 24H, Fishbone Vital Signs/I&O Vital Signs Date Time Temp Pulse Resp B/P (MAP) Pulse Ox O2 Delivery O2 Flow Rate FiO2 08/10/18 10:00 97.9 92 18 128/72 (90) 95 I&O- Last 24 Hours up to 6 AM 08/10/18 06:00 Intake Total 2220 ml Output Total 1100 ml Balance 1120 ml Laboratory Data 24H LABS Laboratory Tests 2 08/09/18 16:30: Bedside Glucose (Misc Panel) 214H 08/10/18 05:36: Immature Granulocyte % (Auto) 0.4, White Blood Count 9.7, Red Blood Count 4.71, Hemoglobin 11.4L, Hematocrit 36.4L, Mean Corpuscular Volume 77.3L, Mean Corpuscular Hemoglobin 24.2L, Mean Corpuscular Hemoglobin Concent 31.3L, Red Cell Distribution Width 14.3, Platelet Count 351, Neutrophils (%) (Auto) 68.6H, Lymphocytes (%) (Auto) 18.9L, Monocytes (%) (Auto) 9.9H, Eosinophils (%) (Auto) 1.6, Basophils (%) (Auto) 0.6, Neutrophils # (Auto) 6.7, Lymphocytes # (Auto) 1.8, Monocytes # (Auto) 1.0H, Eosinophils # (Auto) 0.2, Basophils # (Auto) 0.1, Nucleated Red Blood Cells % (auto) 0.0, Anion Gap 7L, Glomerular Filtration Rate > 60.0, Blood Urea Nitrogen 19H, Creatinine 1.06, Sodium Level 135L, Potassium Level 4.0, Chloride Level 101, Carbon Dioxide Level 27, Calcium Level 9.2 CBC/BMP Laboratory Tests 08/10/18 05:36 Red Blood Count 4.71, Mean Corpuscular Volume 77.3 L, Mean Corpuscular Hemoglobin 24.2 L, Mean Corpuscular Hemoglobin Concent 31.3 L, Red Cell Distribution Width 14.3, Neutrophils (%) (Auto) 68.6 H, Lymphocytes (%) (Auto) 18.9 L, Monocytes (%) (Auto) 9.9 H, Eosinophils (%) (Auto) 1.6, Basophils (%) (Auto) 0.6, Neutrophils # (Auto) 6.7, Lymphocytes # (Auto) 1.8, Monocytes # (Auto) 1.0 H, Eosinophils # (Auto) 0.2, Basophils # (Auto) 0.1, Calcium Level 9.2 Microbiology Microbiology 08/08/18 Blood Culture - Preliminary, Resulted No growth after 24 hours . All specim... 08/08/18 Blood Culture - Preliminary, Resulted No growth after 24 hours . All specim... 08/08/18 Gram Stain - Final, Resulted 08/08/18 Wound Culture, Resulted Pending Shayne Harris MD August 10, 2018 13:08
[2018-08-10 14:00] VITALS: BP 129/74
[2018-08-10] MEDS: metFORMIN (GLUCOPHAGE) 1000 MG TABLET PO SCH (17:05)
[2018-08-10 18:00] VITALS: BP 128/75
[2018-08-10] MEDS: LOSARTAN 50 MG TAB PO SCH (20:11)
[2018-08-10 22:00] VITALS: BP 124/76
[2018-08-11 02:00] VITALS: BP 128/72
[2018-08-11] MEDS: CEFTAROLINE FOSAMIL 600 MG in D5W MINI-BAG PLUS 50 ML IV SCH (04:49)
[2018-08-11 06:00] VITALS: BP 142/80
[2018-08-11 06:26] LABS: BASO # 0.1 10^3/uL (0.0-0.2); BASO % 0.6 % (0.0-1.0); EOS # 0.2 10^3/uL (0.0-0.50); EOS % 1.9 % (0.0-3.0); HEMATOCRIT 36.1 % (42.0-52.0); HEMOGLOBIN 11.1 g/dl (13.5-17.5); LYMPH % 20.4 % (24.0-44.0); MEAN CORPUSCULAR HEMOGLOBIN 24.1 pg (27.0-33.0); MEAN CORPUSCULAR HGB CONC 30.7 g/dl (32.0-36.5); MEAN CORPUSCULAR VOLUME 78.5 fl (80.0-96.0); MONO % 10.6 % (0.0-5.0); NEUTROPHILS # 6.3 10^3/uL (1.8-7.7); NEUTROPHILS % 65.9 % (36.0-66.0); PLATELET COUNT, AUTOMATED 350 10^3/uL (150-450); WHITE BLOOD COUNT 9.6 10^3/uL (4.0-10.0)
[2018-08-11 06:44] LABS: BLOOD UREA NITROGEN 23 MG/DL (7-18); C REACTIVE PROTEIN QUANTITATIV 8.78 MG/DL (0.00-0.30); CALCIUM LEVEL 9.4 MG/DL (8.8-10.2); CARBON DIOXIDE LEVEL 28 MEQ/L (21-32); CHLORIDE LEVEL 102 MEQ/L (98-107); CREATININE FOR GFR 1.06 MG/DL (0.70-1.30); GLOMERULAR FILTRATION RATE > 60.0 (>49); GLUCOSE, FASTING 215 MG/DL (70-100); SODIUM LEVEL 136 MEQ/L (136-145)
[2018-08-11] MEDS: EZETIMIBE 10 MG TAB (ZETIA) PO SCH (08:00)
[2018-08-11] MEDS: OMEPRAZOLE 20 MG CAP PO SCH (08:00)
[2018-08-11] MEDS: TAMSULOSIN 0.4 MG CAP PO SCH (08:01)
[2018-08-11] MEDS: ACETAMINOPHEN 500 MG TAB PO PRN ×2 (08:01→23:28)
[2018-08-11] MEDS: metFORMIN (GLUCOPHAGE) 500 MG TAB PO SCH (08:01)
[2018-08-11] MEDS: ENOXAPARIN 40 MG/0.4 ML SYRINGE (J1650) SC SCH (08:01)
[2018-08-11 10:00] VITALS: BP 123/80
[2018-08-11] MEDS: LevoFLOXacin IV 750 MG in APPROPRIATE DILUENT 1 EA IV SCH (11:12)
--- NOTE | 2018-08-11 11:57 | IPN ---
DATE OF VISIT: 08/11/2018 The patient was seen and examined. He denies new complaints. He has remained afebrile. Maximum temperature (t-max) is 99.7. Laboratories were reviewed. WBC is 9.6, C-reactive protein is improved at 8.78. Culture results are reviewed and they are growing pseudomonas and Staphylococcus, coag negative. Lower extremity examination: Erythema has receded further from previous demarcated line. There still remains erythema and edema most centered around the second toe. This is slightly improved from previous examination. The plantar wound was inspected. No purulence is expressed. No malodor. ASSESSMENT: 67-year-old male with cellulitis, status post puncture wound. PLAN: Levaquin ordered for pseudomonas coverage. Continue antibiotics. We will continue to monitor.
--- NOTE | 2018-08-11 12:37 | IPNPDOC ---
Subjective Date Seen The patient was seen on 08/11/18. Subjective Chief Complaint/HPI Mr. Moseley reports that he's feeling quite well. He notes that the swelling and tenderness in his toe is reducing. He would like to go home as soon as it safe. General: Reports: Normal Appetite Constitutional: Denies: Chills, Fever Pulmonary: Denies: Dyspnea, Cough Cardiovascular: Denies: Chest Pain, Palpitations Gastrointestinal: Denies: Nausea Psych: Reports: Mood Normal Objective Physical Examination General Exam: Positive: Alert, Cooperative (laying in his bedroom and entered his room), No Acute Distress Eye Exam: Positive: PERRLA, EOMI ENT Exam: Positive: Mucous membr. moist/pink Neck Exam: Positive: Supple; Negative: Lymphadenopathy Chest Exam: Positive: Clear to auscultation, Normal air movement Heart Exam: Positive: Rate Normal, Normal S1, Normal S2; Negative: Murmurs Abdomen Exam: Positive: Normal bowel sounds, Soft; Negative: Tenderness Extremity Exam: Negative: Edema Skin Exam: Positive: Nl turgor and temperature, Rash (erythematous zone on foot is smaller as marked, compared to the previous 2 days. A wick is present in puncture wound, placed by Dr. Alicea) Neuro Exam: Positive: Normal Speech Psych Exam: Positive: Mental status NL A-FIB/CHADSVASC A-FIB History Current/History of A-Fib/PAF?: No Assessment /Plan Problems (1) Cellulitis of foot Status: Acute Response to Treatment: Improving Problem Specific Plan: Consult Specialist, Monitor Clinically Problem Text: Podiatry consulted. Wick placed in puncture. Skin erythema and s welling at left 2nd toe have continued to improve. The culture results show Pseudomonas. Levofloxacin was added by Dr. Alicea for coverage of pseudomonas. I stopped the ceftaroline as it's not needed. (2) Hypertension Status: Chronic Response to Treatment: Stable Problem Text: His blood pressure is well-controlled on his current regimen. Continue losartan 50 mg. (3) Type 2 diabetes mellitus Status: Chronic Response to Treatment: Stable Problem Text: He had what seemed to be a hypoglycemic event while in the hospital and covered with insulin. He is now refusing any insulin. His metformin has been restarted. His blood glucose levels still are in the high 100s up to 214. I restarted his Jardiance, but he will need to bring that from home. I explained this to him and he is willing to do so. Plan/VTE VTE Prophylaxis Ordered?: Yes (Cristina) Plan Anticipated Discharge: Home Disposition I anticipate we will likely change him to oral antibiotics tomorrow with a discharge for Saturday. VS, I&O, 24H, Fishbone Vital Signs/I&O Vital Signs Date Time Temp Pulse Resp B/P (MAP) Pulse Ox O2 Delivery O2 Flow Rate FiO2 08/11/18 10:00 99.7 97 22 123/80 (94) 97 I&O- Last 24 Hours up to 6 AM 08/11/18 06:00 Intake Total 1650 ml Output Total 1475 ml Balance 175 ml Laboratory Data 24H LABS Laboratory Tests 2 08/10/18 16:20: Bedside Glucose (Misc Panel) 165H 08/11/18 05:38: Immature Granulocyte % (Auto) 0.6, White Blood Count 9.6, Red Blood Count 4.60, Hemoglobin 11.1L, Hematocrit 36.1L, Mean Corpuscular Volume 78.5L, Mean Corpuscular Hemoglobin 24.1L, Mean Corpuscular Hemoglobin Concent 30.7L, Red Cell Distribution Width 14.4, Platelet Count 350, Neutrophils (%) (Auto) 65.9, Lymphocytes (%) (Auto) 20.4L, Monocytes (%) (Auto) 10.6H, Eosinophils (%) (Auto) 1.9, Basophils (%) (Auto) 0.6, Neutrophils # (Auto) 6.3, Lymphocytes # (Auto) 2.0, Monocytes # (Auto) 1.0H, Eosinophils # (Auto) 0.2, Basophils # (Auto) 0.1, Nucleated Red Blood Cells % (auto) 0.0, Anion Gap 6L, Glomerular Filtration Rate > 60.0, Blood Urea Nitrogen 23H, Creatinine 1.06, Sodium Level 136, Potassium Level 4.0, Chloride Level 102, Carbon Dioxide Level 28, Calcium Level 9.4, C- Reactive Protein, Quantitative 8.78H CBC/BMP Laboratory Tests 08/11/18 05:38 Red Blood Count 4.60, Mean Corpuscular Volume 78.5 L, Mean Corpuscular Hemoglobin 24.1 L, Mean Corpuscular Hemoglobin Concent 30.7 L, Red Cell Distribution Width 14.4, Neutrophils (%) (Auto) 65.9, Lymphocytes (%) (Auto) 20.4 L, Monocytes (%) (Auto) 10.6 H, Eosinophils (%) (Auto) 1.9, Basophils (%) (Auto) 0.6, Neutrophils # (Auto) 6.3, Lymphocytes # (Auto) 2.0, Monocytes # (Auto) 1.0 H, Eosinophils # (Auto) 0.2, Basophils # (Auto) 0.1, Calcium Level 9.4 Microbiology Microbiology 08/08/18 Blood Culture - Preliminary, Resulted No Growth after 48 hours. All Specime... 08/08/18 Blood Culture - Preliminary, Resulted No Growth after 48 hours. All Specime... 08/08/18 Gram Stain - Final, Complete 08/08/18 Wound Culture - Final, Complete Pseudomonas Aeruginosa Staphylococcus Sp Deep Lau MD August 11, 2018 12:37 pm
[2018-08-11 14:00] VITALS: BP 138/89
[2018-08-11] MEDS: metFORMIN (GLUCOPHAGE) 1000 MG TABLET PO SCH (17:34)
[2018-08-11 18:00] VITALS: BP 139/89
[2018-08-11] MEDS: LOSARTAN 50 MG TAB PO SCH (21:39)
[2018-08-11 22:00] VITALS: BP 143/87
[2018-08-12 02:00] VITALS: BP 140/79
[2018-08-12 06:00] VITALS: BP 134/82
[2018-08-12 06:15] LABS: BASO # 0.1 10^3/uL (0.0-0.2); BASO % 0.7 % (0.0-1.0); EOS # 0.2 10^3/uL (0.0-0.50); EOS % 1.8 % (0.0-3.0); HEMATOCRIT 35.9 % (42.0-52.0); LYMPH # 2.4 10^3/uL (1.5-4.5); LYMPH % 26.3 % (24.0-44.0); MEAN CORPUSCULAR HEMOGLOBIN 24.3 pg (27.0-33.0); MEAN CORPUSCULAR HGB CONC 30.6 g/dl (32.0-36.5); MEAN CORPUSCULAR VOLUME 79.2 fl (80.0-96.0); MONO # 1.1 10^3/uL (0.0-0.8); MONO % 11.9 % (0.0-5.0); NEUTROPHILS # 5.3 10^3/uL (1.8-7.7); NEUTROPHILS % 58.9 % (36.0-66.0); PLATELET COUNT, AUTOMATED 337 10^3/uL (150-450); RED BLOOD COUNT 4.53 10^6/uL (4.30-6.10)
[2018-08-12 06:40] LABS: BLOOD UREA NITROGEN 19 MG/DL (7-18); CALCIUM LEVEL 9.1 MG/DL (8.8-10.2); CARBON DIOXIDE LEVEL 30 MEQ/L (21-32); CHLORIDE LEVEL 100 MEQ/L (98-107); GLOMERULAR FILTRATION RATE > 60.0 (>49); GLUCOSE, FASTING 181 MG/DL (70-100); POTASSIUM SERUM 4.4 MEQ/L (3.5-5.1); SODIUM LEVEL 137 MEQ/L (136-145)
[2018-08-12] MEDS: TAMSULOSIN 0.4 MG CAP PO SCH (09:03)
[2018-08-12] MEDS: LevoFLOXacin IV 750 MG in APPROPRIATE DILUENT 1 EA IV SCH (09:04)
[2018-08-12] MEDS: metFORMIN (GLUCOPHAGE) 500 MG TAB PO SCH (09:04)
[2018-08-12] MEDS: ACETAMINOPHEN 500 MG TAB PO PRN (09:04)
[2018-08-12] MEDS: ENOXAPARIN 40 MG/0.4 ML SYRINGE (J1650) SC SCH (09:04)
[2018-08-12] MEDS: EZETIMIBE 10 MG TAB (ZETIA) PO SCH (09:04)
[2018-08-12] MEDS: OMEPRAZOLE 20 MG CAP PO SCH (09:04)
[2018-08-12] MEDS: JARDIANCE 25 MG PO SCH (09:04)
[2018-08-12 09:45] VITALS: BP 141/87
--- NOTE | 2018-08-12 11:35 | IPN ---
DATE: 08/12/2018 Patient seen and examined. Denies new complaints. States his foot is feeling a little better. Labs are reviewed. White blood cell count is 9. Lower extremity examination: Erythema again improved, including to the toe itself. Some blistery serous fluid noted extending onto the dorsal toes. Edema has improved. ASSESSMENT: A 67-year-old, diabetic male with cellulitis status post puncture wound. Blister deroofed using a #11 blade. Continue packing. Patient should be discharged tomorrow on oral Levaquin barring any unforeseen complications overnight. Patient is to have followup with me in office within 1 week.
--- NOTE | 2018-08-12 15:19 | IPNPDOC ---
Subjective Date Seen The patient was seen on 08/12/18. Subjective Chief Complaint/HPI Mr. Moseley is feeling a little better each day. He is very excited about the possibility of going home tomorrow. He has no acute complaints. General: Reports: Normal Appetite ENT: Denies: Head Aches Skin: Reports: Other (blister formed) Pulmonary: Denies: Dyspnea Cardiovascular: Denies: Chest Pain Psych: Reports: Mood Normal Objective Physical Examination General Exam: Positive: Alert, Cooperative (laying in his bed when I entered his room), No Acute Distress Eye Exam: Positive: Conjunctiva & lids normal; Negative: Sclera icteric ENT Exam: Positive: Mucous membr. moist/pink Neck Exam: Negative: Lymphadenopathy Chest Exam: Positive: Clear to auscultation, Normal air movement Heart Exam: Positive: Rate Normal, Normal S1, Normal S2; Negative: Murmurs Abdomen Exam: Positive: Normal bowel sounds, Soft; Negative: Tenderness Extremity Exam: Negative: Edema Skin Exam: Positive: Nl turgor and temperature, Rash (erythematous zone on foot is smaller as marked, compared to the previous days. There was a small blister present on the dorsum of his second toe, but it was unroofed by Dr. Alicea earlier today) Neuro Exam: Positive: Normal Speech Psych Exam: Positive: Mental status NL A-FIB/CHADSVASC A-FIB History Current/History of A-Fib/PAF?: No Assessment /Plan Problems (1) Cellulitis of foot Status: Acute Response to Treatment: Improving Problem Specific Plan: Consult Specialist, Monitor Clinically Problem Text: He seems to be doing well on the levofloxacin. I'll change this to oral today. Anticipate discharge home on this oral medication tomorrow. I reviewed the note from the insurance appraiser and it seems that his thoughts are the same. (2) Hypertension Status: Chronic Response to Treatment: Stable Problem Text: His blood pressure is adequately on his current regimen. Continue home medications, monitor. (3) Type 2 diabetes mellitus Status: Chronic Response to Treatment: Stable Problem Text: We added his Jardiance back yesterday and his blood pressures have improved some. Continue current regimen for now. Anticipate discharge home tomorrow. Plan/VTE VTE Prophylaxis Ordered?: Yes (Lovenox) Plan Anticipated Discharge: Home VS, I&O, 24H, Fishbone Vital Signs/I&O Vital Signs Date Time Temp Pulse Resp B/P (MAP) Pulse Ox O2 Delivery O2 Flow Rate FiO2 08/12/18 14:00 98.1 97 15 08/12/18 09:45 141/87 (105) 99 I&O- Last 24 Hours up to 6 AM 08/12/18 06:00 Intake Total 1200 ml Output Total 1100 ml Balance 100 ml Laboratory Data 24H LABS Laboratory Tests 2 08/11/18 16:47: Bedside Glucose (Misc Panel) 142H 08/12/18 05:47: Immature Granulocyte % (Auto) 0.4, White Blood Count 9.0, Red Blood Count 4.53, Hemoglobin 11.0L, Hematocrit 35.9L, Mean Corpuscular Volume 79.2L, Mean Corpuscular Hemoglobin 24.3L, Mean Corpuscular Hemoglobin Concent 30.6L, Red Cell Distribution Width 14.1, Platelet Count 337, Neutrophils (%) (Auto) 58.9, Lymphocytes (%) (Auto) 26.3, Monocytes (%) (Auto) 11.9H, Eosinophils (%) (Auto) 1.8, Basophils (%) (Auto) 0.7, Neutrophils # (Auto) 5.3, Lymphocytes # (Auto) 2.4, Monocytes # (Auto) 1.1H, Eosinophils # (Auto) 0.2, Basophils # (Auto) 0.1, Nucleated Red Blood Cells % (auto) 0.0, Anion Gap 7L, Glomerular Filtration Rate > 60.0, Blood Urea Nitrogen 19H, Creatinine 1.00, Sodium Level 137, Potassium Level 4.4, Chloride Level 100, Carbon Dioxide Level 30, Calcium Level 9.1 08/12/18 11:10: Bedside Glucose (Misc Panel) 211H CBC/BMP Laboratory Tests 08/12/18 05:47 Red Blood Count 4.53, Mean Corpuscular Volume 79.2 L, Mean Corpuscular Hemoglobin 24.3 L, Mean Corpuscular Hemoglobin Concent 30.6 L, Red Cell Distribution Width 14.1, Neutrophils (%) (Auto) 58.9, Lymphocytes (%) (Auto) 26.3, Monocytes (%) (Auto) 11.9 H, Eosinophils (%) (Auto) 1.8, Basophils (%) (Auto) 0.7, Neutrophils # (Auto) 5.3, Lymphocytes # (Auto) 2.4, Monocytes # (Auto) 1.1 H, Eosinophils # (Auto) 0.2, Basophils # (Auto) 0.1, Calcium Level 9.1 Microbiology Microbiology 08/08/18 Blood Culture - Preliminary, Resulted No Growth after 72 hours. All specime... 08/08/18 Blood Culture - Preliminary, Resulted No Growth after 72 hours. All specime... 08/08/18 Gram Stain - Final, Complete 08/08/18 Wound Culture - Final, Complete Pseudomonas Aeruginosa Staphylococcus Sp Deep Lau MD August 12, 2018 3:19 pm
[2018-08-12] MEDS: metFORMIN (GLUCOPHAGE) 1000 MG TABLET PO SCH (17:32)
[2018-08-12 20:56] VITALS: BP 150/86
[2018-08-12] MEDS: LOSARTAN 50 MG TAB PO SCH (20:56)
[2018-08-12 22:00] VITALS: BP 150/86
[2018-08-13 02:00] VITALS: BP 150/93
[2018-08-13 06:00] VITALS: BP 144/85
[2018-08-13] MEDS ORDERED: LevoFLOXacin 750 MG TABLET PO SCH (06:00)
[2018-08-13 06:33] LABS: BASO % 0.4 % (0.0-1.0); EOS # 0.1 10^3/uL (0.0-0.50); EOS % 0.8 % (0.0-3.0); HEMATOCRIT 36.7 % (42.0-52.0); HEMOGLOBIN 11.4 g/dl (13.5-17.5); LYMPH # 2.2 10^3/uL (1.5-4.5); LYMPH % 22.8 % (24.0-44.0); MEAN CORPUSCULAR HEMOGLOBIN 24.4 pg (27.0-33.0); MEAN CORPUSCULAR HGB CONC 31.1 g/dl (32.0-36.5); MEAN CORPUSCULAR VOLUME 78.4 fl (80.0-96.0); NEUTROPHILS # 6.5 10^3/uL (1.8-7.7); NEUTROPHILS % 65.5 % (36.0-66.0); PLATELET COUNT, AUTOMATED 373 10^3/uL (150-450); RED BLOOD COUNT 4.68 10^6/uL (4.30-6.10); WHITE BLOOD COUNT 9.8 10^3/uL (4.0-10.0)
[2018-08-13 07:02] LABS: BLOOD UREA NITROGEN 20 MG/DL (7-18); CALCIUM LEVEL 9.3 MG/DL (8.8-10.2); CARBON DIOXIDE LEVEL 28 MEQ/L (21-32); CHLORIDE LEVEL 99 MEQ/L (98-107); CREATININE FOR GFR 1.06 MG/DL (0.70-1.30); GLOMERULAR FILTRATION RATE > 60.0 (>49); GLUCOSE, FASTING 130 MG/DL (70-100); SODIUM LEVEL 134 MEQ/L (136-145)
[2018-08-13] MEDS ORDERED: LEVA750T7 PO (07:21)
--- NOTE | 2018-08-13 07:39 | DS.PDOC ---
Discharge Summary General Date of Admission August 08, 2018 at 12:45 Date of Discharge 08/13/18 Primary Care Physician: Kevon Manuel MD Attending Physician: Deep Berumen MD Specialist/Consultants Involve: KLEBER ESTRADA DPM Discharge Summary PROCEDURES PERFORMED DURING STAY: Deroofing of blister left foot by podiatry ADMITTING DIAGNOSES: 1. Cellulitis left foot 2. DM COMPLICATIONS/CHIEF COMPLAINT: Cellulitis Left Foot. HISTORY OF PRESENT ILLNESS:Bo Moseley a 67-year-old male who was admitted from Dr. Manuel's office today due to worsening condition following a puncture wound from a franklyn nail. He states he stepped on this nail on 08/02/2018. He went to the emergency room where he was updated on his tetanus shot and given topical antibiotic ointment. He returned to the emergency room three days later, as the foot became more red and did not seem to be healing well. He was given clindamycin and ceftriaxone at that time, with followup for his primary doctor the next day. He was started on clindamycin following this, on 08/06/2018. He has imaging studies, x-ray and ultrasound, both of which were negative for abscess or obvious foreign body at that time. On 08/08/2018, he was seen by Dr. Manuel, who noted that there was worsening redness to the foot with streaking, and he was sent to the hospital for admission. HOSPITAL COURSE: 1. Cellulitis of left foot: Dr. Riley was consulted. MRI was performed wth no evidence to suggest acute osteomyelitis. Patient was treated with Ceftaroline initially for 3 days. A wound swab culture was taken, returned pseudomonas and staph. Antibiotic was changed to Levaquin. On 08/12/18 a blister was deroofed with packing by Dr. Riley. Symptoms improved throughout his hospital course. He was discharged on oral Levaquin with follow-up scheduled with Dr. Riley and his PCP. Patient remained afebrile throughout his hospital stay. No Leukocytosis. CRP was slightly elevated. DISCHARGE MEDICATIONS: Please see below. ALLERGIES: Please see below. PHYSICAL EXAMINATION ON DISCHARGE: VITAL SIGNS: Please see below. GENERAL: AOx3 HEENT: unremarkable NECK: soft, supply, no lymphadenopathy CARDIOVASCULAR EXAMINATION: RRR RESPIRATORY EXAMINATION: CTA ABDOMINAL EXAMINATION: soft, non-tender EXTREMITIES: erythema noted left lower 2nd toe, mild swelling at base, decreased from the markings. No blisters noted. Plantar aspect with bandage intact no drainage note LABORATORY DATA: Please see below. IMAGING: MRI left foot: No evidence to suggest acute osteomyelitis. Forefoot swelling. Osteoarthritic changes. PROGNOSIS: Good ACTIVITY: As tolerated DISCHARGE PLAN: To home. Services were offered and patient refused. He will f/u with PCP and Dr. Riley within one week DISCHARGE INSTRUCTIONS: 1. Continue with Levaquin to complete a total of 7 days 2. F/U with Dr. Riley as instructed 3. F/U with PCP as instructed DISCHARGE CONDITION: Stable Vital Signs/I&Os Vital Signs Date Time Temp Pulse Resp B/P (MAP) Pulse Ox O2 Delivery O2 Flow Rate FiO2 08/13/18 02:00 99.2 86 18 150/93 (112) 98 I&O- Last 24 Hours up to 6 AM 08/13/18 06:00 Intake Total 1930 ml Output Total 2875 ml Balance -945 ml Laboratory Data Labs 24H Laboratory Tests 2 08/12/18 11:10: Bedside Glucose (Misc Panel) 211H 08/12/18 17:05: Bedside Glucose (Misc Panel) 163H 08/12/18 20:17: Bedside Glucose (Misc Panel) 132H 08/13/18 06:04: Immature Granulocyte % (Auto) 0.5, White Blood Count 9.8, Red Blood Count 4.68, Hemoglobin 11.4L, Hematocrit 36.7L, Mean Corpuscular Volume 78.4L, Mean Corpuscular Hemoglobin 24.4L, Mean Corpuscular Hemoglobin Concent 31.1L, Red Cell Distribution Width 14.1, Platelet Count 373, Neutrophils (%) (Auto) 65.5, Lymphocytes (%) (Auto) 22.8L, Monocytes (%) (Auto) 10.0H, Eosinophils (%) (Auto) 0.8, Basophils (%) (Auto) 0.4, Neutrophils # (Auto) 6.5, Lymphocytes # (Auto) 2.2, Monocytes # (Auto) 1.0H, Eosinophils # (Auto) 0.1, Basophils # (Auto) 0.0, Nucleated Red Blood Cells % (auto) 0.0, Anion Gap 7L, Glomerular Filtration Rate > 60.0, Blood Urea Nitrogen 20H, Creatinine 1.06, Sodium Level 134L, Potassium Level 4.0, Chloride Level 99, Carbon Dioxide Level 28, Calcium Level 9.3, C- Reactive Protein, Quantitative 11.20H CBC/BMP Laboratory Tests 08/13/18 06:04 Red Blood Count 4.68, Mean Corpuscular Volume 78.4 L, Mean Corpuscular Hemoglobin 24.4 L, Mean Corpuscular Hemoglobin Concent 31.1 L, Red Cell Dis tribution Width 14.1, Neutrophils (%) (Auto) 65.5, Lymphocytes (%) (Auto) 22.8 L, Monocytes (%) (Auto) 10.0 H, Eosinophils (%) (Auto) 0.8, Basophils (%) (Auto) 0.4, Neutrophils # (Auto) 6.5, Lymphocytes # (Auto) 2.2, Monocytes # (Auto) 1.0 H, Eosinophils # (Auto) 0.1, Basophils # (Auto) 0.0, Calcium Level 9.3 FSBS Laboratory Tests Test 08/12/18 11:10 08/12/18 17:05 08/12/18 20:17 Range/Units Bedside Glucose (Misc Panel) 211 163 132 80-115 MG/DL Microbiology Microbiology 08/08/18 Blood Culture - Preliminary, Resulted No Growth after 72 hours. All specime... 08/08/18 Blood Culture - Preliminary, Resulted No Growth after 72 hours. All specime... 08/08/18 Gram Stain - Final, Complete 08/08/18 Wound Culture - Final, Complete Pseudomonas Aeruginosa Staphylococcus Sp Coag Neg Discharge Medications Scheduled Aspirin (Aspirin EC) 325 Mg Tab, 325 MG PO QHS, (Reported) Cholecalciferol (Vitamin D3) (Vitamin D3) 5,000 Unit Tablet, 5,000 UNIT PO DAILY, (Reported) Empagliflozin (Jardiance) 25 Mg Tab, 25 MG PO DAILY, (Reported) Levofloxacin (Levaquin) 750 Mg Tablet, 750 MG PO DAILY@06 Losartan Potassium (Losartan Potassium) 50 Mg Tab, 50 MG PO QHS, (Reported) Metformin HCl (Metformin HCl) 1,000 Mg Tab, 1,000 MG PO QHS, (Reported) Metformin HCl (Metformin HCl) 1,000 Mg Tab, 1,500 MG PO QAM, (Reported) Multivitamin (Multivitamins) 1 Each Capsule, 1 CAP PO DAILY, (Reported) Omeprazole (Omeprazole) 20 Mg Cap, 20 MG PO BID, (Reported) Tamsulosin HCl (Flomax) 0.4 Mg Cap, 0.4 MG PO DAILY, (Reported) Allergies Coded Allergies: atorvastatin (Verified Adverse Reaction, Intermediate, leg pain, 07/04/18) gabapentin (Verified Adverse Reaction, Intermediate, off balance, dizzy, 07/04/18) Uncoded Allergies: UNKNOWN DIABETIC MED (Allergy, Unknown, rash, nausea, 07/04/18) JAZMIN RODRIGUEZ August 13, 2018 07:26
[2018-08-13] MEDS: EZETIMIBE 10 MG TAB (ZETIA) PO SCH (08:44)
[2018-08-13] MEDS: JARDIANCE 25 MG PO SCH (08:44)
[2018-08-13] MEDS: OMEPRAZOLE 20 MG CAP PO SCH (08:45)
[2018-08-13] MEDS: metFORMIN (GLUCOPHAGE) 500 MG TAB PO SCH (08:45)
[2018-08-13] MEDS: TAMSULOSIN 0.4 MG CAP PO SCH (08:45)
[2018-08-13] MEDS: ENOXAPARIN 40 MG/0.4 ML SYRINGE (J1650) SC SCH (08:45)
== END 2018-08-13 10:45 | disposition home or self-care (01) | DRG 383 ==
LOC: M MS5PR 12:45
PROVIDERS: ADMIT Family Medicine; ATTEND Family Medicine
DX: L03.116 Cellulitis of left lower limb (principal); Z79.899 Other long term (current) drug therapy; Z79.82 Long term (current) use of aspirin; Z88.8 Allergy status to other drugs, medicaments and biological substances; E10.40 Type 1 diabetes mellitus with diabetic neuropathy, unspecified; E78.5 Hyperlipidemia, unspecified; N40.0 Benign prostatic hyperplasia without lower urinary tract symptoms; K21.9 Gastro-esophageal reflux disease without esophagitis; I10 Essential (primary) hypertension

== ENCOUNTER → 2018-09-10 | Outpatient (CLI) | payer OTHER ==
[~2018-09-10] MED LIST changes: +AMOX875T2 PO; -EZET10TA PO; +EZET10TA21 PO; +LEVA750T7 PO
[2018-09-10 13:25] LABS: BLOOD UREA NITROGEN 16 MG/DL (7-18); CALCIUM LEVEL 9.2 MG/DL (8.8-10.2); CARBON DIOXIDE LEVEL 27 MEQ/L (21-32); CHLORIDE LEVEL 104 MEQ/L (98-107); CHOLESTEROL LEVEL 200 MG/DL (<200); CHOLESTEROL RISK RATIO 4.761 (<5); CREATININE FOR GFR 1.08 MG/DL (0.70-1.30); GLOMERULAR FILTRATION RATE > 60.0 (>49); GLUCOSE, FASTING 212 MG/DL (70-100); HDL CHOLESTEROL 42 MG/DL (>40); LDL CHOLESTEROL 126 MG/DL (<100); NON-HDL-C 158 MG/DL; POTASSIUM SERUM 5.1 MEQ/L (3.5-5.1); SODIUM LEVEL 139 MEQ/L (136-145); TRIGLYCERIDES LEVEL 160 MG/DL (<150)
[2018-09-10 13:42] LABS: HEMOGLOBIN A1c 10.2 %
== END ==
LOC: M WUC 08:20
PROVIDERS: ATTEND Family Medicine
DX: E11.65 Type 2 diabetes mellitus with hyperglycemia (principal); E78.2 Mixed hyperlipidemia

== ENCOUNTER → 2019-01-05 | Outpatient (CLI) | payer OTHER ==
[~2019-01-05] MED LIST changes: -ASPI-222 PO; +ASPI-527 PO; -OMEP20CA3 PO; +OMEP20CA4 PO
[2019-01-05 13:30] LABS: HEMOGLOBIN A1c 9.9 %
[2019-01-05 13:31] LABS: BLOOD UREA NITROGEN 18 MG/DL (7-18); CALCIUM LEVEL 9.6 MG/DL (8.8-10.2); CARBON DIOXIDE LEVEL 30 MEQ/L (21-32); CHLORIDE LEVEL 102 MEQ/L (98-107); CREATININE FOR GFR 1.15 MG/DL (0.70-1.30); GLOMERULAR FILTRATION RATE > 60.0 (>49); GLUCOSE, FASTING 111 MG/DL (70-100); POTASSIUM SERUM 4.4 MEQ/L (3.5-5.1); SODIUM LEVEL 139 MEQ/L (136-145)
== END ==
LOC: M WUC 10:41
PROVIDERS: ATTEND Family Medicine
DX: E11.65 Type 2 diabetes mellitus with hyperglycemia (principal)

== ENCOUNTER → 2019-04-20 | Outpatient (CLI) | payer OTHER ==
[~2019-04-20] MED LIST changes: -GLIM2TAB PO; +GLIM2TAB4 PO; +OMEP1CAP73 PO; -OMEP20CA4 PO
[2019-04-20 09:54] LABS: BLOOD UREA NITROGEN 21 MG/DL (7-18); CALCIUM LEVEL 9.5 MG/DL (8.8-10.2); CARBON DIOXIDE LEVEL 29 MEQ/L (21-32); CHLORIDE LEVEL 103 MEQ/L (98-107); GLOMERULAR FILTRATION RATE > 60.0 (>49); GLUCOSE, FASTING 108 MG/DL (70-100); POTASSIUM SERUM 4.9 MEQ/L (3.5-5.1); SODIUM LEVEL 139 MEQ/L (136-145)
[2019-04-20 11:15] LABS: HEMOGLOBIN A1c 8.3 %
== END ==
LOC: M WUC 08:26
PROVIDERS: ATTEND Family Medicine
DX: E11.65 Type 2 diabetes mellitus with hyperglycemia (principal)

== ENCOUNTER → 2019-08-31 | Outpatient (CLI) | payer OTHER ==
[2019-08-31 16:29] LABS: HEMATOCRIT 39.7 % (42.0-52.0); HEMOGLOBIN 11.9 g/dl (13.5-17.5); MEAN CORPUSCULAR VOLUME 76.8 fl (80.0-96.0); PLATELET COUNT, AUTOMATED 327 10^3/uL (150-450); RED BLOOD COUNT 5.17 10^6/uL (4.30-6.10)
[2019-08-31 16:45] LABS: HEMOGLOBIN A1c 7.9 %
[2019-08-31 16:49] LABS: ALT/SGPT 41 U/L (12-78); BILIRUBIN,TOTAL 0.4 MG/DL (0.2-1.0); BLOOD UREA NITROGEN 18 MG/DL (7-18); CALCIUM LEVEL 9.8 MG/DL (8.8-10.2); CARBON DIOXIDE LEVEL 28 MEQ/L (21-32); CHLORIDE LEVEL 105 MEQ/L (98-107); CHOLESTEROL LEVEL 216 MG/DL (<200); CHOLESTEROL RISK RATIO 5.268 (<5); CREATININE FOR GFR 1.12 MG/DL (0.70-1.30); GLOMERULAR FILTRATION RATE > 60.0 (>49); GLUCOSE, FASTING 103 MG/DL (70-100); HDL CHOLESTEROL 41 MG/DL (>40); LDL CHOLESTEROL 151 MG/DL (<100); NON-HDL-C 175 MG/DL; POTASSIUM SERUM 5.1 MEQ/L (3.5-5.1); SODIUM LEVEL 140 MEQ/L (136-145); TOTAL PROTEIN 7.6 GM/DL (6.4-8.2); TRIGLYCERIDES LEVEL 122 MG/DL (<150)
[2019-08-31 17:04] LABS: MALB URINE SIEMENS 18.7 MG/L; MAU/CREAT RATIO 17.3 MCG/MG (0.0-30.0)
== END ==
LOC: M WUC 10:31
PROVIDERS: ATTEND Family Medicine
DX: E11.65 Type 2 diabetes mellitus with hyperglycemia (principal); E78.2 Mixed hyperlipidemia; K22.70 Barrett's esophagus without dysplasia

== ENCOUNTER → 2019-12-01 | Outpatient (CLI) | payer OTHER ==
[~2019-12-01] MED LIST changes: -ASPI81TA85 PO; +ASPI81TA86 PO
[2019-12-01 14:02] LABS: ALBUMIN 4.2 GM/DL (3.2-5.2); ALT/SGPT 43 U/L (12-78); BILIRUBIN,TOTAL 0.4 MG/DL (0.2-1.0); BLOOD UREA NITROGEN 15 MG/DL (7-18); CALCIUM LEVEL 9.7 MG/DL (8.8-10.2); CARBON DIOXIDE LEVEL 28 MEQ/L (21-32); CHLORIDE LEVEL 104 MEQ/L (98-107); CHOLESTEROL LEVEL 193 MG/DL (<200); CHOLESTEROL RISK RATIO 4.386 (<5); CREATININE FOR GFR 1.04 MG/DL (0.70-1.30); GLOMERULAR FILTRATION RATE > 60.0 (>49); GLUCOSE, FASTING 94 MG/DL (70-100); HDL CHOLESTEROL 44 MG/DL (>40); LDL CHOLESTEROL 130 MG/DL (<100); NON-HDL-C 149 MG/DL; POTASSIUM SERUM 4.8 MEQ/L (3.5-5.1); SODIUM LEVEL 139 MEQ/L (136-145); TOTAL PROTEIN 7.4 GM/DL (6.4-8.2); TRIGLYCERIDES LEVEL 93 MG/DL (<150)
[2019-12-01 15:14] LABS: HEMOGLOBIN A1c 7.9 %
== END ==
LOC: M WUC 10:50
PROVIDERS: ATTEND Family Medicine
DX: E78.2 Mixed hyperlipidemia (principal); E11.65 Type 2 diabetes mellitus with hyperglycemia

== ENCOUNTER → 2020-11-04 | Outpatient (REF) | payer MEDICARE, OTHER ==
[~2020-11-04] MED LIST changes: +BACTDSTA PO; +GABA-282 PO; -GABA-843 PO; +LISI10TA22 PO; -LISI10TA4 PO; -SULF1TAB93 PO
[2020-11-04 16:00] LABS: HEMOGLOBIN A1c 8.1 %
== END ==
LOC: M SFHCADAM 10:00
PROVIDERS: ATTEND Family Medicine
DX: E78.2 Mixed hyperlipidemia (principal); E11.65 Type 2 diabetes mellitus with hyperglycemia

== ENCOUNTER → 2020-11-08 | Outpatient (CLI) | payer MEDICARE, OTHER ==
[2020-11-08 11:10] LABS: ALT/SGPT 39 U/L (12-78); BILIRUBIN,TOTAL 0.4 MG/DL (0.2-1.0); BLOOD UREA NITROGEN 19 MG/DL (7-18); CALCIUM LEVEL 9.3 MG/DL (8.8-10.2); CARBON DIOXIDE LEVEL 28 MEQ/L (21-32); CHLORIDE LEVEL 106 MEQ/L (98-107); CHOLESTEROL LEVEL 214 MG/DL (<200); CHOLESTEROL RISK RATIO 4.863 (<5); CREATININE FOR GFR 1.08 MG/DL (0.70-1.30); GLOMERULAR FILTRATION RATE > 60.0 (>49); GLUCOSE, FASTING 113 MG/DL (70-100); HDL CHOLESTEROL 44 MG/DL (>40); LDL CHOLESTEROL 149 MG/DL (<100); NON-HDL-C 170 MG/DL; POTASSIUM SERUM 4.4 MEQ/L (3.5-5.1); SODIUM LEVEL 139 MEQ/L (136-145); TOTAL PROTEIN 7.4 GM/DL (6.4-8.2); TRIGLYCERIDES LEVEL 107 MG/DL (<150)
== END ==
LOC: M LAB 09:28
PROVIDERS: ATTEND Family Medicine
DX: E78.2 Mixed hyperlipidemia (principal); E11.65 Type 2 diabetes mellitus with hyperglycemia

== ENCOUNTER → 2020-11-23 | Outpatient (CLI) | payer MEDICARE ==
--- NOTE | 2020-11-23 15:12 | REP ---
INDICATION: SPRAIN OF LIGAMENTS OF LUMBAR SPINE, INITIAL ENCOUNTER. COMPARISON: None. TECHNIQUE: Five views FINDINGS: There is bilateral marginal osteophytosis heaviest from L2-3 to L4-5. There is anterior lipping at every level. There is endplate sclerosis and disc space narrowing which is moderate to severe at every level. There is loss of a lumbar lordotic curve. Heavy degenerative facet joint changes are seen bilaterally at every level vertebral body height is within normal limits. There is no evidence of spondylolysis or spondylolisthesis. IMPRESSION: Advanced chronic changes as described above. <Electronically signed by Moses Wilson > 11/23/20 [id number]
== END ==
LOC: M RAD 14:49
PROVIDERS: ATTEND Physician Assistant
DX: S33.5XXA Sprain of ligaments of lumbar spine, initial encounter (principal)

== ENCOUNTER → 2021-03-09 | Outpatient (CLI) | payer MEDICARE, BC ==
[~2021-03-09] MED LIST changes: -IBUP200T45 PO; +IBUP200T46 PO
[2021-03-09 10:48] LABS: BLOOD UREA NITROGEN 20 MG/DL (7-18); CALCIUM LEVEL 9.8 MG/DL (8.8-10.2); CARBON DIOXIDE LEVEL 30 MEQ/L (21-32); CHLORIDE LEVEL 103 MEQ/L (98-107); CREATININE FOR GFR 1.19 MG/DL (0.70-1.30); GLOMERULAR FILTRATION RATE > 60.0 (>49); GLUCOSE, FASTING 111 MG/DL (70-100); POTASSIUM SERUM 4.4 MEQ/L (3.5-5.1); SODIUM LEVEL 139 MEQ/L (136-145)
[2021-03-09 14:05] LABS: HEMOGLOBIN A1c 8.6 %
== END ==
LOC: M WUC 08:21
PROVIDERS: ATTEND Family Medicine
DX: E11.65 Type 2 diabetes mellitus with hyperglycemia (principal)

== ENCOUNTER → 2021-07-05 | Outpatient (CLI) | payer MEDICARE, BC ==
[~2021-07-05] MED LIST changes: +LOSA50TA28 PO; -LOSA50TA88 PO
== END ==
LOC: M WUC 11:17
PROVIDERS: ATTEND Family Medicine
DX: M25.511 Pain in right shoulder (principal)

== ENCOUNTER → 2021-09-11 | Outpatient (CLI) | payer MEDICARE, BC ==
[2021-09-11 13:14] LABS: BLOOD UREA NITROGEN 27 MG/DL (7-18); CALCIUM LEVEL 10.3 MG/DL (8.8-10.2); CARBON DIOXIDE LEVEL 26 MEQ/L (21-32); CHLORIDE LEVEL 105 MEQ/L (98-107); CREATININE FOR GFR 1.06 MG/DL (0.70-1.30); GLOMERULAR FILTRATION RATE > 60.0 (>49); GLUCOSE, FASTING 126 MG/DL (70-100); POTASSIUM SERUM 4.7 MEQ/L (3.5-5.1); SODIUM LEVEL 138 MEQ/L (136-145)
== END ==
LOC: M WUC 10:52
PROVIDERS: ATTEND Family Medicine
DX: E11.65 Type 2 diabetes mellitus with hyperglycemia (principal)

== ENCOUNTER → 2021-09-19 | Outpatient (CLI) | payer MEDICARE, BC | LOC: M WUC 11:25 | PROVIDERS: ATTEND Family Medicine | DX: M47.812 Spondylosis without myelopathy or radiculopathy, cervical region (principal) ==

== ENCOUNTER → 2021-12-05 | Outpatient (CLI) | payer BC, MEDICARE | LOC: M PAIN 09:00 | PROVIDERS: ATTEND Nurse Practitioner Family | DX: M54.2 Cervicalgia (principal); G89.29 Other chronic pain; E11.40 Type 2 diabetes mellitus with diabetic neuropathy, unspecified; K21.9 Gastro-esophageal reflux disease without esophagitis; I10 Essential (primary) hypertension; Z88.8 Allergy status to other drugs, medicaments and biological substances; Z79.4 Long term (current) use of insulin; Z79.82 Long term (current) use of aspirin; Z79.899 Other long term (current) drug therapy ==

== ENCOUNTER → 2022-01-13 | Outpatient (CLI) | payer MEDICARE ==
[2022-01-13 10:15] LABS: HEMATOCRIT 37.1 % (42.0-52.0); HEMOGLOBIN 10.8 g/dl (13.5-17.5); MEAN CORPUSCULAR HEMOGLOBIN 21.8 pg (27.0-33.0); MEAN CORPUSCULAR HGB CONC 29.1 g/dl (32.0-36.5); MEAN CORPUSCULAR VOLUME 74.9 fl (80.0-96.0); PLATELET COUNT, AUTOMATED 344 10^3/uL (150-450); RED BLOOD COUNT 4.95 10^6/uL (4.30-6.10); WHITE BLOOD COUNT 6.7 10^3/uL (4.0-10.0)
[2022-01-13 10:39] LABS: HEMOGLOBIN A1c 7.5 %
[2022-01-13 10:47] LABS: ALBUMIN 3.8 GM/DL (3.2-5.2); ALT/SGPT 37 U/L (12-78); BILIRUBIN,TOTAL 0.3 MG/DL (0.2-1.0); BLOOD UREA NITROGEN 25 MG/DL (7-18); CALCIUM LEVEL 9.4 MG/DL (8.8-10.2); CARBON DIOXIDE LEVEL 26 MEQ/L (21-32); CHLORIDE LEVEL 106 MEQ/L (98-107); CHOLESTEROL LEVEL 178 MG/DL (<200); CHOLESTEROL RISK RATIO 4.045 (<5); CREATININE FOR GFR 1.15 MG/DL (0.70-1.30); GLOMERULAR FILTRATION RATE > 60.0 (>42); GLUCOSE, FASTING 125 MG/DL (70-100); HDL CHOLESTEROL 44 MG/DL (>40); LDL CHOLESTEROL 117 MG/DL (<100); NON-HDL-C 134 MG/DL; POTASSIUM SERUM 4.5 MEQ/L (3.5-5.1); SODIUM LEVEL 138 MEQ/L (136-145); TOTAL PROTEIN 7.3 GM/DL (6.4-8.2); TRIGLYCERIDES LEVEL 87 MG/DL (<150)
== END ==
LOC: M LAB 09:34
PROVIDERS: ATTEND Family Medicine
DX: E11.65 Type 2 diabetes mellitus with hyperglycemia (principal)

== ENCOUNTER → 2022-01-17 | Outpatient (REF) | payer BC, MEDICARE ==
[2022-01-17 13:55] LABS: FERRITIN 8 NG/ML (26-388); FREE T4 1.01 NG/DL (0.76-1.46); IRON (FE) 78 UG/DL (65-175); PERCENT SATURATION 16.1 % (19.7-50.0); TOTAL IRON BINDING CAPACITY 485 UG/DL (250-450); TOTAL PROTEIN 7.9 GM/DL (6.4-8.2)
[2022-01-17 14:35] LABS: VITAMIN B12 LEVEL 554 PG/ML (247-911)
[2022-01-18 07:07] LABS: FOLATE 16.8 ng/mL (>3.0)
[2022-01-18 13:15] LABS: ALBUMIN 4.68 GM/DL (3.29-5.55); ALBUMIN % 59.3 % (55.8-66.1); ALPHA-1-GLOBULIN % 4.3 % (2.9-4.9); ALPHA-1-GLOBULINS 0.34 GM/DL (0.17-0.41); ALPHA-2-GLOBULINS 1.02 GM/DL (0.42-0.99); ALPHA-2-GLOBULINS % 12.9 % (7.1-11.8); BETA-1-GLOBULINS 0.56 GM/DL (0.28-0.60); BETA-1-GLOBULINS % 7.1 % (4.7-7.2); BETA-2-GLOBULINS 0.36 GM/DL (0.19-0.55); BETA-2-GLOBULINS % 4.6 % (3.2-6.5); GAMMA GLOBULIN % 11.8 % (11.1-18.8); GAMMA GLOBULINS 0.93 GM/DL (0.65-1.58)
[2022-01-18 17:08] LABS: FREE KAPPA LIGHT CHAINS SERUM 24.2 mg/L (3.3-19.4); FREE LAMBDA LIGHT CHAINS SERUM 18.9 mg/L (5.7-26.3); KAPPA/LAMBDA RATIO SERUM 1.28 (0.26-1.65)
== END ==
LOC: M SFHCADAM 10:41
PROVIDERS: ATTEND Family Medicine
DX: D64.9 Anemia, unspecified (principal); G99.0 Autonomic neuropathy in diseases classified elsewhere; Z12.5 Encounter for screening for malignant neoplasm of prostate
CPT/HCPCS: 82607; 82728; 82746; 83521; 83550; 84165; 84439; 84443; 85046; G0103

== ENCOUNTER → 2022-05-09 | Outpatient (CLI) | payer MEDICARE, BC ==
[2022-05-09 16:38] LABS: HEMOGLOBIN 10.6 g/dl (13.5-17.5); MEAN CORPUSCULAR HEMOGLOBIN 22.5 pg (27.0-33.0); MEAN CORPUSCULAR HGB CONC 29.4 g/dl (32.0-36.5); MEAN CORPUSCULAR VOLUME 76.4 fl (80.0-96.0); PLATELET COUNT, AUTOMATED 321 10^3/uL (150-450); RED BLOOD COUNT 4.71 10^6/uL (4.30-6.10); WHITE BLOOD COUNT 7.8 10^3/uL (4.0-10.0)
[2022-05-09 17:30] LABS: ALKALINE PHOSPHATASE 86 U/L (46-116); ALT/SGPT 28 U/L (7.0-40); AST/SGOT 29 U/L (<34); BILIRUBIN,TOTAL 0.4 MG/DL (0.3-1.2); BLOOD UREA NITROGEN 23 MG/DL (9-23); CALCIUM LEVEL 9.6 MG/DL (8.3-10.6); CARBON DIOXIDE LEVEL 30 MMOL/L (20-31); CHLORIDE LEVEL 101 MMOL/L (98-107); CHOLESTEROL LEVEL 177 MG/DL (<200); CHOLESTEROL RISK RATIO 4.09 (<5); CREATININE FOR GFR 0.95 MG/DL (0.70-1.30); GLOMERULAR FILTRATION RATE > 60.0 (>42); GLUCOSE, FASTING 82 MG/DL (74-106); HDL CHOLESTEROL 43.2 MG/DL (>40); LDL CHOLESTEROL 113.6 MG/DL (<100); NON-HDL-C 134 MG/DL; SODIUM LEVEL 138 MMOL/L (136-145); TOTAL PROTEIN 6.8 G/DL (5.7-8.2); TRIGLYCERIDES LEVEL 101 MG/DL (<150)
[2022-05-09 17:35] LABS: HEMOGLOBIN A1c 9.1 % (4.0-6.0)
== END ==
LOC: M WUC 10:38
PROVIDERS: ATTEND Family Medicine
DX: D64.9 Anemia, unspecified (principal); E11.65 Type 2 diabetes mellitus with hyperglycemia; E78.2 Mixed hyperlipidemia

== ENCOUNTER → 2022-07-24 | Outpatient (REF) | payer MEDICARE, BC ==
[2022-07-24 16:54] LABS: BLOOD UREA NITROGEN 19 MG/DL (9-23); CREATININE FOR GFR 1.07 MG/DL (0.70-1.30); GLOMERULAR FILTRATION RATE > 60.0 (>42)
== END ==
LOC: M LABWUC 16:08
PROVIDERS: ATTEND Physician Assistant Medical
DX: D50.9 Iron deficiency anemia, unspecified (principal)

== ENCOUNTER → 2022-08-03 | Outpatient (CLI) | payer MEDICARE ==
[~2022-08-03] MED LIST changes: +ASPI81TA26 PO; +FERR325T3 PO; +GLUCAGON INJ 1MG VIAL As Ordered ONE; +ISOVUE-370 76% 100ML VIAL As Ordered ONE; +NEULUMEX 0.1% SUSPENSION 450ML BOTTLE (FORMERLY VOLUMEN) As Ordered ONE; +PREG50CA PO; +VITA100093 PO; +VITATAB73 PO; +ZETI10TA16 PO
== END ==
LOC: M RAD 11:54
PROVIDERS: ATTEND Physician Assistant Medical
DX: D50.9 Iron deficiency anemia, unspecified (principal)
CPT/HCPCS: 74177; J1610; Q9967

== ENCOUNTER 2022-08-14 06:36 | Day surgery (SDC) | payer MEDICARE ==
[~2022-08-14] VITALS: Ht 190.5 cm; Wt 98.3 kg
[~2022-08-14 06:36] MED LIST changes: -GLUCAGON INJ 1MG VIAL As Ordered ONE; -ISOVUE-370 76% 100ML VIAL As Ordered ONE; -NEULUMEX 0.1% SUSPENSION 450ML BOTTLE (FORMERLY VOLUMEN) As Ordered ONE; +NS 1,000 ML IV ONE
[2022-08-14] MEDS ORDERED: propofoL 200 MG/20 ML VIAL As Ordered ONE (07:24)
[2022-08-14] MEDS ORDERED: LIDOCAINE 2% 100MG/5ML SDV (FOR ANES.) As Ordered ONE (07:24)
[2022-08-14] MEDS ORDERED: fentaNYL 100 MCG/2 ML INJECTION As Ordered ONE (07:24)
[2022-08-14 08:50] VITALS: BP 119/56
== END 2022-08-14 09:05 | disposition home or self-care (01) ==
LOC: M OPP 06:36
PROVIDERS: ATTEND Internal Medicine Gastroenterology
DX: D12.5 Benign neoplasm of sigmoid colon (principal); K63.5 Polyp of colon; K57.30 Diverticulosis of large intestine without perforation or abscess without bleeding; D50.9 Iron deficiency anemia, unspecified; K22.89 Other specified disease of esophagus; K22.70 Barrett's esophagus without dysplasia; Z88.5 Allergy status to narcotic agent; Z88.8 Allergy status to other drugs, medicaments and biological substances
CPT/HCPCS: 43239; 45385; 88305; J3010

== ENCOUNTER 2022-08-22 20:46 | Inpatient (IN) | payer MEDICARE ==
[~2022-08-22] VITALS: Ht 185.4 cm; Wt 99.5 kg
[~2022-08-22 20:46] MED LIST changes: -PREG50CA2; -VITA-172 PO
[2022-08-22] MEDS ORDERED: PREG50CA2 (20:57)
[2022-08-22] MEDS ORDERED: PANTOPRAZOLE 40MG VIAL IV ONE (21:30)
[2022-08-22 22:04] LABS: INR 0.86; PARTIAL THROMBOPLASTIN TIME 21.4 SECONDS (24.8-34.2); PROTHROMBIN TIME 11.9 SECONDS (12.5-14.5)
[2022-08-22 22:16] LABS: BASO # 0.1 10^3/uL (0.0-0.2); BASO % 0.6 % (0.0-1.0); EOS # 0.1 10^3/uL (0.0-0.5); EOS % 1.2 % (0.0-3.0); HEMATOCRIT 29.7 % (42.0-52.0); HEMOGLOBIN 9.2 g/dl (13.5-17.5); LYMPH # 2.5 10^3/uL (1.5-5.0); LYMPH % 30.1 % (24.0-44.0); MEAN CORPUSCULAR HEMOGLOBIN 23.5 pg (27.0-33.0); MEAN CORPUSCULAR VOLUME 75.8 fl (80.0-96.0); MONO # 0.7 10^3/uL (0.0-0.8); MONO % 8.2 % (2.0-8.0); NEUTROPHILS # 4.9 10^3/uL (1.5-8.5); NEUTROPHILS % 59.7 % (36.0-66.0); PLATELET COUNT, AUTOMATED 257 10^3/uL (150-450); RED BLOOD COUNT 3.92 10^6/uL (4.30-6.10); WHITE BLOOD COUNT 8.3 10^3/uL (4.0-10.0)
[2022-08-22 22:24] LABS: ALBUMIN 4.1 G/DL (3.2-5.2); ALKALINE PHOSPHATASE 98 U/L (46-116); ALT/SGPT 33 U/L (7.0-40); AST/SGOT 67 U/L (<34); BILIRUBIN,DIRECT < 0.1 MG/DL (<0.4); BILIRUBIN,TOTAL 0.2 MG/DL (0.3-1.2); BLOOD UREA NITROGEN 32 MG/DL (9-23); CALCIUM LEVEL 9.3 MG/DL (8.3-10.6); CARBON DIOXIDE LEVEL 22 MMOL/L (20-31); CHLORIDE LEVEL 101 MMOL/L (98-107); CREATININE FOR GFR 1.02 MG/DL (0.70-1.30); GLOMERULAR FILTRATION RATE > 60.0 (>42); GLUCOSE, FASTING 138 MG/DL (74-106); POTASSIUM SERUM 5.7 MMOL/L (3.5-5.1); SODIUM LEVEL 135 MMOL/L (136-145); TOTAL PROTEIN 7.4 G/DL (5.7-8.2)
[2022-08-22 22:25] LABS: RSV AMPLIFICATION NEGATIVE (NEGATIVE)
[2022-08-23] VITALS (12 sets, daily range): BP systolic 115–159; BP diastolic 54–80
[2022-08-23] MEDS ORDERED: VITA-172 PO (00:28)
[2022-08-23] MEDS ORDERED: HOME MED LIST COMPLETE! XX SCH (00:30)
[2022-08-23] MEDS ORDERED: DEXTROSE 50% 50ML SYRINGE IV PRN (01:45)
[2022-08-23] MEDS ORDERED: HEPARIN SOD (PORCINE) 5000UNITS/ML 1ML VIAL/SYRINGE SC SCH (01:45)
[2022-08-23] MEDS ORDERED: GLUCOSE 4GM CHEW TABLET PO PRN (01:45)
[2022-08-23] MEDS ORDERED: GLUCAGON INJ 1MG VIAL SC PRN (01:45)
[2022-08-23] MEDS: INSULIN LISPRO (NovoLOG) PER UNIT SC SCH ×4 (02:46→20:27)
[2022-08-23 02:53] LABS: HEMATOCRIT 30.5 % (42.0-52.0); HEMOGLOBIN 9.3 g/dl (13.5-17.5)
[2022-08-23 06:17] LABS: HEMATOCRIT 32.2 % (42.0-52.0); HEMOGLOBIN 9.6 g/dl (13.5-17.5)
[2022-08-23] MEDS ORDERED: INSULIN LISPRO (NovoLOG) PER UNIT SC SCH ×3 (07:30→21:00)
[2022-08-23] MEDS ORDERED: MOM 30ML SUSPENSION UDC PO ONE (08:45)
[2022-08-23] MEDS ORDERED: PANTOPRAZOLE 40MG TAB (PROTONIX) PO SCH (09:00)
[2022-08-23] MEDS: PREGABALIN 50 MG CAP (LYRICA) PO SCH ×2 (09:00→20:27)
[2022-08-23] MEDS: PANTOPRAZOLE 40MG VIAL IV SCH ×2 (09:27→20:27)
[2022-08-23] MEDS ORDERED: POLYETHYLENE GLYCOL (MIRALAX) 238GM BOTTLE PO ONE (11:00)
[2022-08-23 11:39] LABS: HEMATOCRIT 31.7 % (42.0-52.0); HEMOGLOBIN 9.9 g/dl (13.5-17.5)
[2022-08-23] MEDS ORDERED: propofoL 200 MG/20 ML VIAL As Ordered ONE ×3 (17:11→18:09)
[2022-08-23] MEDS ORDERED: LIDOCAINE 2% 100MG/5ML SDV (FOR ANES.) As Ordered ONE (17:11)
[2022-08-23] MEDS ORDERED: PHENYLephrine 500MCG 5ML (100MCG/ML) SYRINGE As Ordered ONE (17:50)
[2022-08-23] MEDS ORDERED: fentaNYL 100 MCG/2 ML INJECTION IV PRN (18:15)
[2022-08-23] MEDS ORDERED: ONDANSETRON 4MG 2ML VIAL IV PRN (18:15)
[2022-08-23 19:45] LABS: HEMATOCRIT 29.8 % (42.0-52.0); HEMOGLOBIN 9.1 g/dl (13.5-17.5)
[2022-08-23] MEDS: TAMSULOSIN 0.4 MG CAP PO SCH (20:27)
[2022-08-23] MEDS: EZETIMIBE 10MG TABLET (ZETIA) PO SCH (20:27)
[2022-08-23] MEDS ORDERED: LEVEMIR (INSULIN DETEMIR) 1 UNITS/0.01ML SC SCH (21:00)
[2022-08-23] MEDS ORDERED: LOSARTAN 50MG TABLET PO SCH (21:00)
[2022-08-23 22:39] LABS: HEMATOCRIT 28.7 % (42.0-52.0); HEMOGLOBIN 8.7 g/dl (13.5-17.5)
[2022-08-24 00:47] VITALS: BP 149/73
[2022-08-24 05:04] VITALS: BP 111/56
[2022-08-24 06:15] LABS: BASO % 0.6 % (0.0-1.0); EOS # 0.1 10^3/uL (0.0-0.5); EOS % 1.7 % (0.0-3.0); HEMOGLOBIN 8.9 g/dl (13.5-17.5); LYMPH # 1.9 10^3/uL (1.5-5.0); LYMPH % 28.3 % (24.0-44.0); MEAN CORPUSCULAR HEMOGLOBIN 23.5 pg (27.0-33.0); MEAN CORPUSCULAR HGB CONC 30.7 g/dl (32.0-36.5); MEAN CORPUSCULAR VOLUME 76.7 fl (80.0-96.0); MONO # 0.7 10^3/uL (0.0-0.8); MONO % 9.9 % (2.0-8.0); NEUTROPHILS % 59.3 % (36.0-66.0); PLATELET COUNT, AUTOMATED 260 10^3/uL (150-450); RED BLOOD COUNT 3.78 10^6/uL (4.30-6.10); WHITE BLOOD COUNT 6.7 10^3/uL (4.0-10.0)
[2022-08-24 06:38] LABS: BLOOD UREA NITROGEN 19 MG/DL (9-23); CALCIUM LEVEL 9.3 MG/DL (8.3-10.6); CARBON DIOXIDE LEVEL 27 MMOL/L (20-31); CHLORIDE LEVEL 104 MMOL/L (98-107); CREATININE FOR GFR 0.97 MG/DL (0.70-1.30); GLOMERULAR FILTRATION RATE > 60.0 (>42); GLUCOSE, FASTING 187 MG/DL (74-106); POTASSIUM SERUM 4.2 MMOL/L (3.5-5.1); SODIUM LEVEL 138 MMOL/L (136-145)
[2022-08-24] MEDS ORDERED: INSULIN LISPRO (NovoLOG) PER UNIT SC SCH (07:30)
[2022-08-24] MEDS ORDERED: FERR324T21 PO (07:46)
[2022-08-24] MEDS ORDERED: MM S100C PO (07:46)
[2022-08-24 08:00] VITALS: BP 145/67
[2022-08-24] MEDS: PANTOPRAZOLE 40MG VIAL IV SCH (09:00)
[2022-08-24] MEDS: TAMSULOSIN 0.4 MG CAP PO SCH (09:01)
[2022-08-24] MEDS: PREGABALIN 50 MG CAP (LYRICA) PO SCH (09:01)
[2022-08-24] MEDS: EZETIMIBE 10MG TABLET (ZETIA) PO SCH (09:01)
[2022-08-24] MEDS ORDERED: FERRIC CARBOXYMALTOSE INJ 750 MG, VIAL MATE ADAPTER 1 EACH in NS 250 ML IV ONE (11:00)
[2022-08-24 11:04] VITALS: BP 159/74
[2022-08-24 11:56] VITALS: BP 134/72
[2022-08-24 12:00] VITALS: BP 159/74
== END 2022-08-24 12:52 | disposition home or self-care (01) | DRG 920 ==
LOC: M ED 20:46 → M ED INP 23:49 → M PCU 08-23 02:36
PROVIDERS: ADMIT Family Medicine; ATTEND Internal Medicine Nephrology
PROC: 0W3P8ZZ Control Bleeding in Gastrointestinal Tract, Via Natural or Artificial Opening Endoscopic (ICD-10-PCS; principal; 2022-08-23 16:15)
DX: K91.840 Postprocedural hemorrhage of a digestive system organ or structure following a digestive system procedure (principal); K63.3 Ulcer of intestine; D62 Acute posthemorrhagic anemia; I10 Essential (primary) hypertension; E11.42 Type 2 diabetes mellitus with diabetic polyneuropathy; N40.0 Benign prostatic hyperplasia without lower urinary tract symptoms; K21.9 Gastro-esophageal reflux disease without esophagitis; K57.30 Diverticulosis of large intestine without perforation or abscess without bleeding; K64.1 Second degree hemorrhoids; E78.5 Hyperlipidemia, unspecified; K22.70 Barrett's esophagus without dysplasia; G43.909 Migraine, unspecified, not intractable, without status migrainosus; M51.37 Other intervertebral disc degeneration, lumbosacral region; D50.9 Iron deficiency anemia, unspecified; Z88.8 Allergy status to other drugs, medicaments and biological substances; Z79.82 Long term (current) use of aspirin; Z79.899 Other long term (current) drug therapy

== ENCOUNTER → 2022-08-22 | Outpatient (CLI) | payer MEDICARE ==
[~2022-08-22] MED LIST changes: -NS 1,000 ML IV ONE; +PREG50CA2; +VITA-172 PO
[2022-08-22 19:25] LABS: BASO % 0.3 % (0.0-1.0); EOS # 0.1 10^3/uL (0.0-0.5); EOS % 1.1 % (0.0-3.0); HEMATOCRIT 31.3 % (42.0-52.0); HEMOGLOBIN 9.6 g/dl (13.5-17.5); LYMPH # 2.3 10^3/uL (1.5-5.0); LYMPH % 18.4 % (24.0-44.0); MEAN CORPUSCULAR HEMOGLOBIN 23.4 pg (27.0-33.0); MEAN CORPUSCULAR HGB CONC 30.7 g/dl (32.0-36.5); MEAN CORPUSCULAR VOLUME 76.3 fl (80.0-96.0); MONO % 8.1 % (2.0-8.0); NEUTROPHILS # 8.8 10^3/uL (1.5-8.5); NEUTROPHILS % 71.7 % (36.0-66.0); PLATELET COUNT, AUTOMATED 272 10^3/uL (150-450); WHITE BLOOD COUNT 12.3 10^3/uL (4.0-10.0)
== END ==
LOC: M LAB 18:48
PROVIDERS: ATTEND Internal Medicine Gastroenterology
DX: K92.1 Melena (principal)

== ENCOUNTER → 2022-09-04 | Outpatient (CLI) | payer MEDICARE ==
[~2022-09-04] MED LIST changes: +FERR324T21 PO; +MM S100C PO; +PREG50CA2; +VITA-172 PO
== END ==
LOC: M RAD 11:27
PROVIDERS: ATTEND Physician Assistant Medical
DX: R93.3 Abnormal findings on diagnostic imaging of other parts of digestive tract (principal); D50.9 Iron deficiency anemia, unspecified

== ENCOUNTER → 2022-09-05 | Outpatient (CLI) | payer MEDICARE ==
[2022-09-05 12:43] LABS: HEMATOCRIT 36.9 % (42.0-52.0); MEAN CORPUSCULAR HEMOGLOBIN 24.6 pg (27.0-33.0); MEAN CORPUSCULAR HGB CONC 29.8 g/dl (32.0-36.5); MEAN CORPUSCULAR VOLUME 82.4 fl (80.0-96.0); PLATELET COUNT, AUTOMATED 320 10^3/uL (150-450); RED BLOOD COUNT 4.48 10^6/uL (4.30-6.10); WHITE BLOOD COUNT 6.9 10^3/uL (4.0-10.0)
[2022-09-05 13:19] LABS: TOTAL IRON BINDING CAPACITY 369 UG/DL (250-425)
[2022-09-05 13:22] LABS: IRON (FE) 75 UG/DL (65-175); PERCENT SATURATION 20.3 % (19.7-50.0)
[2022-09-05 13:23] LABS: ALKALINE PHOSPHATASE 83 U/L (46-116); ALT/SGPT 31 U/L (7.0-40); AST/SGOT 19 U/L (<34); BILIRUBIN,TOTAL 0.3 MG/DL (0.3-1.2); BLOOD UREA NITROGEN 18 MG/DL (9-23); CALCIUM LEVEL 9.6 MG/DL (8.3-10.6); CARBON DIOXIDE LEVEL 28 MMOL/L (20-31); CHLORIDE LEVEL 104 MMOL/L (98-107); CREATININE FOR GFR 0.98 MG/DL (0.70-1.30); FERRITIN 168.6 NG/ML (10.5-307.3); GLOMERULAR FILTRATION RATE > 60.0 (>42); GLUCOSE, FASTING 92 MG/DL (74-106); POTASSIUM SERUM 4.9 MMOL/L (3.5-5.1); SODIUM LEVEL 139 MMOL/L (136-145); TOTAL PROTEIN 6.8 G/DL (5.7-8.2)
[2022-09-05 13:31] LABS: CREATININE, URINE 100.4 MG/DL
[2022-09-05 13:33] LABS: MAU/CREAT RATIO 3.9 MCG/MG (0.0-30.0)
[2022-09-05 13:46] LABS: HEMOGLOBIN A1c 7.1 % (4.0-6.0)
== END ==
LOC: M WUC 10:35
PROVIDERS: ATTEND Family Medicine
DX: E11.65 Type 2 diabetes mellitus with hyperglycemia (principal); D50.9 Iron deficiency anemia, unspecified

== ENCOUNTER → 2022-11-01 | Outpatient (CLI) | payer MEDICARE ==
[~2022-11-01] MED LIST changes: +PROHANCE 279.3MG/ML 15ML VIAL As Ordered ONE; +PROHANCE 279.3MG/ML 5ML VIAL As Ordered ONE
== END ==
LOC: M RAD 09:01
PROVIDERS: ATTEND Internal Medicine Gastroenterology
DX: D62 Acute posthemorrhagic anemia (principal)
CPT/HCPCS: 74183; A9576

== ENCOUNTER → 2023-07-09 | Outpatient (CLI) | payer MEDICARE ==
[~2023-07-09] MED LIST changes: +EZET10TA58 PO; -PREG50CA2; +PREG50CA3; -PROHANCE 279.3MG/ML 15ML VIAL As Ordered ONE; -PROHANCE 279.3MG/ML 5ML VIAL As Ordered ONE; -ZETI10TA16 PO
[2023-07-09 17:12] LABS: HEMOGLOBIN A1c 9.4 % (4.0-6.0)
[2023-07-09 17:19] LABS: ALBUMIN 4.2 G/DL (3.2-5.2); ALKALINE PHOSPHATASE 97 U/L (46-116); ALT/SGPT 42 U/L (7.0-40); AST/SGOT 22 U/L (<34); BILIRUBIN,TOTAL 0.4 MG/DL (0.3-1.2); BLOOD UREA NITROGEN 21 MG/DL (9-23); CALCIUM LEVEL 9.7 MG/DL (8.3-10.6); CARBON DIOXIDE LEVEL 30 MMOL/L (20-31); CHLORIDE LEVEL 103 MMOL/L (98-107); CHOLESTEROL LEVEL 184 MG/DL (<200); CHOLESTEROL RISK RATIO 4.18 (<5); CREATININE FOR GFR 0.93 MG/DL (0.70-1.30); GLOMERULAR FILTRATION RATE > 60.0 (>42); GLUCOSE, FASTING 180 MG/DL (74-106); POTASSIUM SERUM 4.1 MMOL/L (3.5-5.1); SODIUM LEVEL 136 MMOL/L (136-145); TOTAL PROTEIN 7.1 G/DL (5.7-8.2); TRIGLYCERIDES LEVEL 135 MG/DL (<150)
== END ==
LOC: M WUC 11:25
PROVIDERS: ATTEND Family Medicine
DX: E78.2 Mixed hyperlipidemia (principal); E11.65 Type 2 diabetes mellitus with hyperglycemia

== ENCOUNTER 2023-08-12 05:57 | Day surgery (SDC) | payer MEDICARE ==
[~2023-08-12] VITALS: Ht 185.4 cm; Wt 105.2 kg
[2023-08-12] MEDS ORDERED: LR 1,000 ML IV SCH ×2 (06:20→08:40)
[2023-08-12] MEDS ORDERED: propofoL 200 MG/20 ML VIAL As Ordered ONE (06:50)
[2023-08-12] MEDS ORDERED: KETOROLAC 60MG 2ML VIAL As Ordered ONE (06:50)
[2023-08-12] MEDS ORDERED: ONDANSETRON 4MG 2ML VIAL As Ordered ONE (06:50)
[2023-08-12] MEDS ORDERED: LIDOCAINE 2% 100MG/5ML SDV (FOR ANES.) As Ordered ONE (06:51)
[2023-08-12] MEDS ORDERED: fentaNYL 100 MCG/2 ML INJECTION As Ordered ONE (06:55)
[2023-08-12] MEDS ORDERED: MIDAZOLAM INJ 2MG/2ML VIAL As Ordered ONE (06:56)
[2023-08-12] MEDS ORDERED: ACETAMINOPHEN 1000MG 100ML IV BAG As Ordered ONE (07:59)
[2023-08-12] MEDS: BACITRACIN OINTMENT 30GM TUBE As Ordered ONE (08:34)
[2023-08-12] MEDS ORDERED: ONDANSETRON 4MG 2ML VIAL IV PRN (08:40)
[2023-08-12] MEDS ORDERED: HYDROMORPHONE HCL 0.5 MG/ 0.5 ML SYRINGE IV PRN (08:40)
[2023-08-12] MEDS: fentaNYL 100 MCG/2 ML INJECTION IV PRN (09:16)
[2023-08-12] MEDS: oxyCODONE 5MG TAB PO PRN (09:29)
[2023-08-12 10:24] VITALS: BP 156/77; TEMP 97.2; O2SAT 96
== END 2023-08-12 10:38 | disposition home or self-care (01) ==
LOC: M SDC 05:57
PROVIDERS: ATTEND Orthopaedic Surgery Hand Surgery
DX: G56.02 Carpal tunnel syndrome, left upper limb (principal); I10 Essential (primary) hypertension; E78.5 Hyperlipidemia, unspecified; E11.9 Type 2 diabetes mellitus without complications; K21.9 Gastro-esophageal reflux disease without esophagitis; N40.0 Benign prostatic hyperplasia without lower urinary tract symptoms; Z79.82 Long term (current) use of aspirin; Z79.899 Other long term (current) drug therapy; Z88.8 Allergy status to other drugs, medicaments and biological substances
CPT/HCPCS: 29848; J0131; J0665; J1100; J1885; J2250; J2405; J3010

== ENCOUNTER 2023-09-02 07:51 | Day surgery (SDC) | payer MEDICARE ==
[~2023-09-02] VITALS: Ht 185.4 cm; Wt 104.1 kg
[2023-09-02] MEDS ORDERED: LR 1,000 ML IV SCH ×2 (08:15→11:00)
[2023-09-02] MEDS ORDERED: MIDAZOLAM INJ 2MG/2ML VIAL As Ordered ONE (08:43)
[2023-09-02] MEDS ORDERED: fentaNYL 100 MCG/2 ML INJECTION As Ordered ONE (08:44)
[2023-09-02] MEDS ORDERED: propofoL 200 MG/20 ML VIAL As Ordered ONE (09:56)
[2023-09-02] MEDS ORDERED: ACETAMINOPHEN 1000MG 100ML IV BAG As Ordered ONE (09:57)
[2023-09-02] MEDS ORDERED: ONDANSETRON 4MG 2ML VIAL As Ordered ONE (09:57)
[2023-09-02] MEDS ORDERED: LIDOCAINE 2% 100MG/5ML SDV (FOR ANES.) As Ordered ONE (09:57)
[2023-09-02] MEDS ORDERED: ePHEDrine SULFATE 25 MG/5 ML(5MG/ML) SYRINGE As Ordered ONE (10:11)
[2023-09-02] MEDS ORDERED: PHENYLephrine 500MCG 5ML (100MCG/ML) SYRINGE As Ordered ONE (10:11)
[2023-09-02] MEDS: BACITRACIN OINTMENT 30GM TUBE As Ordered ONE (10:15)
[2023-09-02] MEDS ORDERED: KETOROLAC 60MG 2ML VIAL As Ordered ONE (10:16)
[2023-09-02] MEDS ORDERED: HYDROMORPHONE HCL 0.5 MG/ 0.5 ML SYRINGE IV PRN (11:00)
[2023-09-02] MEDS ORDERED: ONDANSETRON 4MG 2ML VIAL IV PRN (11:00)
[2023-09-02] MEDS ORDERED: fentaNYL 100 MCG/2 ML INJECTION IV PRN (11:00)
[2023-09-02] MEDS ORDERED: oxyCODONE 5MG TAB PO PRN (11:00)
[2023-09-02 11:40] VITALS: BP 156/87; TEMP 97.2; O2SAT 96
== END 2023-09-02 12:04 | disposition home or self-care (01) ==
LOC: M SDC 07:51
PROVIDERS: ATTEND Orthopaedic Surgery Hand Surgery
DX: G56.01 Carpal tunnel syndrome, right upper limb (principal); I10 Essential (primary) hypertension; E78.5 Hyperlipidemia, unspecified; E11.9 Type 2 diabetes mellitus without complications; E04.1 Nontoxic single thyroid nodule; K21.9 Gastro-esophageal reflux disease without esophagitis; D64.9 Anemia, unspecified; Z79.82 Long term (current) use of aspirin; Z79.4 Long term (current) use of insulin; Z79.84 Long term (current) use of oral hypoglycemic drugs; Z79.899 Other long term (current) drug therapy; Z88.8 Allergy status to other drugs, medicaments and biological substances
CPT/HCPCS: 29848; J0131; J0665; J1100; J1885; J2250; J2371; J2405; J3010

== ENCOUNTER → 2023-10-14 | Outpatient (CLI) | payer MEDICARE ==
[2023-10-14 13:25] LABS: HEMOGLOBIN A1c 7.5 % (4.0-6.0)
[2023-10-14 13:31] LABS: BLOOD UREA NITROGEN 28 MG/DL (9-23); CALCIUM LEVEL 9.5 MG/DL (8.3-10.6); CARBON DIOXIDE LEVEL 30 MMOL/L (20-31); CHLORIDE LEVEL 106 MMOL/L (98-107); CREATININE FOR GFR 0.99 MG/DL (0.70-1.30); GLOMERULAR FILTRATION RATE > 60.0 (>42); GLUCOSE, FASTING 77 MG/DL (74-106); POTASSIUM SERUM 4.3 MMOL/L (3.5-5.1); SODIUM LEVEL 142 MMOL/L (136-145)
== END ==
LOC: M WUC 10:09
PROVIDERS: ATTEND Family Medicine
DX: E11.65 Type 2 diabetes mellitus with hyperglycemia (principal)

== ENCOUNTER → 2023-12-31 | Outpatient (CLI) | payer MEDICARE ==
[~2023-12-31] MED LIST changes: +GABA-1172 PO; -GABA-282 PO
[2023-12-31 17:11] LABS: HEMOGLOBIN A1c 7.3 % (4.0-6.0)
[2023-12-31 17:33] LABS: BLOOD UREA NITROGEN 23 MG/DL (9-23); CARBON DIOXIDE LEVEL 27 MMOL/L (20-31); CHLORIDE LEVEL 105 MMOL/L (98-107); CREATININE FOR GFR 0.93 MG/DL (0.70-1.30); GLOMERULAR FILTRATION RATE > 60.0 (>42); GLUCOSE, FASTING 143 MG/DL (74-106); POTASSIUM SERUM 4.1 MMOL/L (3.5-5.1); SODIUM LEVEL 136 MMOL/L (136-145)
== END ==
LOC: M WUC 11:00
PROVIDERS: ATTEND Family Medicine
DX: E11.65 Type 2 diabetes mellitus with hyperglycemia (principal)

== ENCOUNTER → 2024-01-02 | Outpatient (CLI) | payer MEDICARE | LOC: M ADAMS 11:59 | PROVIDERS: ATTEND Family Medicine | DX: M75.81 Other shoulder lesions, right shoulder (principal) ==

== ENCOUNTER → 2024-01-13 | Outpatient (REF) | payer MEDICARE | LOC: M SFHCDERM 16:44 | PROVIDERS: ATTEND Physician Assistant | DX: L08.9 Local infection of the skin and subcutaneous tissue, unspecified (principal) ==

== ENCOUNTER 2024-01-16 15:39 | Emergency (ER) | payer MEDICARE ==
[~2024-01-16] VITALS: Ht 185.4 cm; Wt 101.7 kg
[2024-01-16 17:07] LABS: BASO % 0.3 % (0.0-1.0); EOS % 0.2 % (0.0-3.0); HEMATOCRIT 40.9 % (42.0-52.0); HEMOGLOBIN 12.9 g/dl (13.5-17.5); LYMPH # 1.7 10^3/uL (1.5-5.0); LYMPH % 13.1 % (24.0-44.0); MEAN CORPUSCULAR HEMOGLOBIN 25.3 pg (27.0-33.0); MEAN CORPUSCULAR HGB CONC 31.5 g/dl (32.0-36.5); MEAN CORPUSCULAR VOLUME 80.2 fl (80.0-96.0); MONO # 0.8 10^3/uL (0.0-0.8); MONO % 5.9 % (2.0-8.0); NEUTROPHILS # 10.4 10^3/uL (1.5-8.5); NEUTROPHILS % 80.1 % (36.0-66.0); PLATELET COUNT, AUTOMATED 364 10^3/uL (150-450)
[2024-01-16 17:18] LABS: ERYTHROCYTE SEDIMENTATION RATE 75 mm/hr (0-20)
[2024-01-16 18:14] LABS: BLOOD UREA NITROGEN 24 MG/DL (9-23); CALCIUM LEVEL 10.7 MG/DL (8.3-10.6); CARBON DIOXIDE LEVEL 25 MMOL/L (20-31); CHLORIDE LEVEL 104 MMOL/L (98-107); CREATININE FOR GFR 0.82 MG/DL (0.70-1.30); GLOMERULAR FILTRATION RATE > 60.0 (>42); GLUCOSE, FASTING 286 MG/DL (74-106); POTASSIUM SERUM 4.1 MMOL/L (3.5-5.1); SODIUM LEVEL 135 MMOL/L (136-145)
[2024-01-16] MEDS: CLINDAMYCIN 150MG CAPSULE PO ONE (19:44)
[2024-01-16] MEDS ORDERED: CLEO300C2 PO (20:33)
[2024-01-16] MEDS ORDERED: MUPI30CR TOP (20:34)
[2024-01-16 20:43] VITALS: BP 147/89; TEMP 97.6; O2SAT 99
== END 2024-01-16 20:45 | disposition home or self-care (01) ==
LOC: M ED 15:39
DX: E11.621 Type 2 diabetes mellitus with foot ulcer (principal); L03.031 Cellulitis of right toe; K21.9 Gastro-esophageal reflux disease without esophagitis; G43.909 Migraine, unspecified, not intractable, without status migrainosus; M48.061 Spinal stenosis, lumbar region without neurogenic claudication; N40.0 Benign prostatic hyperplasia without lower urinary tract symptoms; Z88.8 Allergy status to other drugs, medicaments and biological substances; Z79.82 Long term (current) use of aspirin; Z79.4 Long term (current) use of insulin; Z79.899 Other long term (current) drug therapy

== ENCOUNTER 2024-04-20 07:26 | Day surgery (SDC) | payer MEDICARE ==
[~2024-04-20] VITALS: Ht 185.4 cm; Wt 102.5 kg
[~2024-04-20 07:26] MED LIST changes: +AMLO1TAB24 PO; +CLEO300C2 PO; +FLUC-1 PO; +MUPI30CR TOP
[2024-04-20 09:59] VITALS: BP 158/94; TEMP 96.8; O2SAT 98
== END 2024-04-20 10:05 | disposition home or self-care (01) ==
LOC: M OPP 07:26
PROVIDERS: ATTEND Internal Medicine Gastroenterology
DX: K57.30 Diverticulosis of large intestine without perforation or abscess without bleeding (principal); K64.8 Other hemorrhoids; Z86.0100 Personal history of colon polyps, unspecified; I10 Essential (primary) hypertension; E78.00 Pure hypercholesterolemia, unspecified; E11.9 Type 2 diabetes mellitus without complications; M19.90 Unspecified osteoarthritis, unspecified site; G43.909 Migraine, unspecified, not intractable, without status migrainosus; N40.0 Benign prostatic hyperplasia without lower urinary tract symptoms; Z88.8 Allergy status to other drugs, medicaments and biological substances; Z79.4 Long term (current) use of insulin; Z79.82 Long term (current) use of aspirin; Z79.84 Long term (current) use of oral hypoglycemic drugs; Z79.899 Other long term (current) drug therapy; Z80.8 Family history of malignant neoplasm of other organs or systems

== ENCOUNTER 2024-04-29 15:02 | Inpatient (IN) | payer MEDICARE ==
[~2024-04-29] VITALS: Ht 185.4 cm; Wt 99.9 kg
[2024-04-29] MEDS ORDERED: ISOVUE-370 76% 100ML VIAL As Ordered ONE (16:15)
[2024-04-29 16:26] LABS: BASO # 0.1 10^3/uL (0.0-0.2); BASO % 0.6 % (0.0-1.0); EOS # 0.1 10^3/uL (0.0-0.5); EOS % 1.1 % (0.0-3.0); INR 0.97; LYMPH # 3.3 10^3/uL (1.5-5.0); LYMPH % 30.4 % (24.0-44.0); MEAN CORPUSCULAR HGB CONC 31.7 g/dl (32.0-36.5); MEAN CORPUSCULAR VOLUME 78.8 fl (80.0-96.0); MONO % 9.1 % (2.0-8.0); NEUTROPHILS # 6.4 10^3/uL (1.5-8.5); NEUTROPHILS % 58.4 % (36.0-66.0); PLATELET COUNT, AUTOMATED 324 10^3/uL (150-450); PROTHROMBIN TIME 13.2 SECONDS (12.5-14.5); WHITE BLOOD COUNT 10.9 10^3/uL (4.0-10.0)
[2024-04-29] MEDS: CLOPIDOGREL 75 MG TAB PO ONE (18:27)
[2024-04-29] MEDS ORDERED: MOM 30ML SUSPENSION UDC PO PRN (19:10)
[2024-04-29] MEDS ORDERED: DEXTROSE 50% 50ML SYRINGE IV PRN (19:10)
[2024-04-29] MEDS ORDERED: MAALOX 30 ML SUSP *UDC PO PRN (19:10)
[2024-04-29] MEDS ORDERED: GLUCAGON INJ 1MG VIAL SC PRN (19:10)
[2024-04-29] MEDS ORDERED: GLUCOSE 4 GM CHEW PO PRN (19:10)
[2024-04-29] MEDS ORDERED: PREG75CA3 PO (19:14)
[2024-04-29] MEDS ORDERED: HOME MED LIST COMPLETE! XX SCH (19:15)
[2024-04-29 19:28] LABS: ALBUMIN 4.4 G/DL (3.2-5.2); ALKALINE PHOSPHATASE 92 U/L (40-129); ALT/SGPT 48 U/L (7.0-40); AST/SGOT 36 U/L (<34); BILIRUBIN,DIRECT < 0.1 MG/DL (<0.4); BILIRUBIN,TOTAL 0.3 MG/DL (0.3-1.2); BLOOD UREA NITROGEN 20 MG/DL (9-23); CALCIUM LEVEL 10.3 MG/DL (8.3-10.6); CARBON DIOXIDE LEVEL 25 MMOL/L (20-31); CHLORIDE LEVEL 102 MMOL/L (98-107); GLOMERULAR FILTRATION RATE > 60.0 (>42); GLUCOSE, FASTING 62 MG/DL (74-106); MAGNESIUM LEVEL 1.6 MG/DL (1.8-2.4); POTASSIUM SERUM 3.7 MMOL/L (3.5-5.1); SODIUM LEVEL 140 MMOL/L (136-145); TOTAL PROTEIN 7.7 G/DL (5.7-8.2)
[2024-04-29] MEDS: diazePAM 5MG TABLET PO ONE (20:37)
[2024-04-29 20:43] LABS: CK-MB VALUE MASS 6.9 NG/ML (<3.6)
[2024-04-29 20:44] LABS: C REACTIVE PROTEIN QUANTITATIV 0.77 MG/DL (<1.0); CHOLESTEROL LEVEL 208 MG/DL (<200); CHOLESTEROL RISK RATIO 4.82 (<5); CPK CREATINE PHOSPHOKINASE 425 U/L (46-171); HDL CHOLESTEROL 43.1 MG/DL (>40); LDL CHOLESTEROL 114.3 MG/DL (<100); MB/CK RELATIVE INDEX 1.62 (< OR =4); NON-HDL-C 164.9 MG/DL; TRIGLYCERIDES LEVEL 253 MG/DL (<150)
[2024-04-29 20:53] LABS: HEMOGLOBIN A1c 7.6 % (4.0-6.0)
[2024-04-29] MEDS: INSULIN LISPRO (NovoLOG) PER UNIT SC SCH (21:00)
[2024-04-29] MEDS: LEVEMIR (INSULIN DETEMIR) 1 UNITS/0.01ML SC SCH (21:00)
[2024-04-29] MEDS: OMEPRAZOLE 20MG CAP PO SCH (22:18)
[2024-04-29] MEDS: DOCUSATE SODIUM 100MG CAPSULE PO SCH (22:18)
[2024-04-29] MEDS: PREGABALIN 75 MG CAP(LYRICA) PO SCH (22:18)
[2024-04-29] MEDS: ASPIRIN 81MG ENTERIC TABLET PO SCH (22:19)
[2024-04-29] MEDS: EZETIMIBE 10MG TABLET (ZETIA) PO SCH (22:58)
[2024-04-30 07:19] LABS: HEMATOCRIT 40.5 % (42.0-52.0); MEAN CORPUSCULAR HEMOGLOBIN 25.2 pg (27.0-33.0); MEAN CORPUSCULAR HGB CONC 32.1 g/dl (32.0-36.5); MEAN CORPUSCULAR VOLUME 78.5 fl (80.0-96.0); PLATELET COUNT, AUTOMATED 321 10^3/uL (150-450); RED BLOOD COUNT 5.16 10^6/uL (4.30-6.10); WHITE BLOOD COUNT 7.4 10^3/uL (4.0-10.0)
[2024-04-30] MEDS: INSULIN LISPRO (NovoLOG) PER UNIT SC SCH (07:23)
[2024-04-30 07:45] LABS: ALBUMIN 3.9 G/DL (3.2-5.2); ALKALINE PHOSPHATASE 73 U/L (40-129); ALT/SGPT 38 U/L (7.0-40); AST/SGOT 34 U/L (<34); BILIRUBIN,TOTAL 0.5 MG/DL (0.3-1.2); BLOOD UREA NITROGEN 17 MG/DL (9-23); CALCIUM LEVEL 10.2 MG/DL (8.3-10.6); CARBON DIOXIDE LEVEL 29 MMOL/L (20-31); CHLORIDE LEVEL 100 MMOL/L (98-107); CREATININE FOR GFR 0.89 MG/DL (0.70-1.30); GLOMERULAR FILTRATION RATE > 60.0 (>42); GLUCOSE, FASTING 91 MG/DL (74-106); MAGNESIUM LEVEL 1.8 MG/DL (1.8-2.4); POTASSIUM SERUM 4.6 MMOL/L (3.5-5.1); SODIUM LEVEL 141 MMOL/L (136-145)
[2024-04-30] MEDS: TAMSULOSIN 0.4 MG CAP PO SCH (08:08)
[2024-04-30] MEDS: CLOPIDOGREL 75 MG TAB PO SCH (08:09)
[2024-04-30] MEDS: ENOXAPARIN 40MG/0.4ML SYRINGE (J1650 PER 10MG) SC SCH (08:10)
[2024-04-30 17:55] VITALS: BP 138/80; TEMP 98.2; O2SAT 92
[2024-04-30 19:00] VITALS: O2SAT 94
[2024-04-30 20:00] VITALS: O2SAT 94
[2024-04-30 20:51] VITALS: BP 150/84; TEMP 97.8; O2SAT 98
[2024-04-30 22:00] VITALS: O2SAT 94
[2024-04-30] MEDS: TOPIRAMATE (TopAMAX) 25 MG TAB PO SCH (22:48)
[2024-04-30] MEDS: ACETAMINOPHEN 325 MG TAB PO PRN (22:57)
[2024-04-30 23:00] VITALS: O2SAT 96
[2024-05-01] VITALS (17 sets, daily range): BP systolic 142–167; BP diastolic 81–89; TEMP 96.9–97.9; O2SAT 90–97
[2024-05-01 07:47] LABS: PERCENT SATURATION 16.9 % (19.7-50.0)
[2024-05-01] MEDS: amLODIPine 5 MG TAB PO SCH (09:30)
[2024-05-01] MEDS ORDERED: CLOP75TA2 PO (11:38)
[2024-05-01] MEDS ORDERED: AMLO1TAB24 PO (12:03)
== END 2024-05-01 13:19 | disposition home health service (06) | DRG 66 ==
LOC: M ED 15:02 → M ED INP 15:03 → OBSVTOIN 22:24 → M PCU 04-30 17:22
PROVIDERS: ADMIT Family Medicine; ATTEND Student in an Organized Health Care Education/Training Program
DX: I63.9 Cerebral infarction, unspecified (principal); E11.51 Type 2 diabetes mellitus with diabetic peripheral angiopathy without gangrene; I10 Essential (primary) hypertension; K21.9 Gastro-esophageal reflux disease without esophagitis; E78.5 Hyperlipidemia, unspecified; I65.22 Occlusion and stenosis of left carotid artery; G43.809 Other migraine, not intractable, without status migrainosus; Z79.899 Other long term (current) drug therapy; Z88.8 Allergy status to other drugs, medicaments and biological substances; N40.0 Benign prostatic hyperplasia without lower urinary tract symptoms; M51.360 Other intervertebral disc degeneration, lumbar region with discogenic back pain only; M50.90 Cervical disc disorder, unspecified, unspecified cervical region; Z79.82 Long term (current) use of aspirin; Z79.4 Long term (current) use of insulin

== ENCOUNTER → 2024-06-01 | Outpatient (REF) | payer MEDICARE ==
[~2024-06-01] MED LIST changes: +CLOP75TA2 PO; +PREG75CA3 PO
[2024-06-01 14:02] LABS: HEMATOCRIT 42.4 % (42.0-52.0); MEAN CORPUSCULAR HEMOGLOBIN 24.6 pg (27.0-33.0); MEAN CORPUSCULAR HGB CONC 30.7 g/dl (32.0-36.5); MEAN CORPUSCULAR VOLUME 80.2 fl (80.0-96.0); PLATELET COUNT, AUTOMATED 298 10^3/uL (150-450); RED BLOOD COUNT 5.29 10^6/uL (4.30-6.10); WHITE BLOOD COUNT 6.5 10^3/uL (4.0-10.0)
[2024-06-01 14:24] LABS: PSA SCREENING 1.32 NG/ML (< 4.00)
[2024-06-01 14:26] LABS: ALBUMIN 4.1 G/DL (3.2-5.2); ALKALINE PHOSPHATASE 91 U/L (40-129); ALT/SGPT 41 U/L (7.0-40); AST/SGOT 29 U/L (<34); BILIRUBIN,TOTAL 0.4 MG/DL (0.3-1.2); BLOOD UREA NITROGEN 24 MG/DL (9-23); CALCIUM LEVEL 9.9 MG/DL (8.3-10.6); CARBON DIOXIDE LEVEL 30 MMOL/L (20-31); CHLORIDE LEVEL 102 MMOL/L (98-107); CHOLESTEROL LEVEL 95 MG/DL (<200); CHOLESTEROL RISK RATIO 2.08 (<5); CREATININE FOR GFR 0.89 MG/DL (0.70-1.30); GLOMERULAR FILTRATION RATE > 60.0 (>42); GLUCOSE, FASTING 109 MG/DL (74-106); HDL CHOLESTEROL 45.5 MG/DL (>40); LDL CHOLESTEROL 32.3 MG/DL (<100); NON-HDL-C 49.5 MG/DL; POTASSIUM SERUM 4.7 MMOL/L (3.5-5.1); SODIUM LEVEL 139 MMOL/L (136-145); TOTAL PROTEIN 7.6 G/DL (5.7-8.2); TRIGLYCERIDES LEVEL 86 MG/DL (<150)
[2024-06-01 14:38] LABS: CREATININE, URINE 65.1 MG/DL; MAU/CREAT RATIO 33.7 MCG/MG (0.0-30.0)
[2024-06-01 15:48] LABS: HEMOGLOBIN A1c 7.4 % (4.0-6.0)
== END ==
LOC: M SFHCADAM 10:34
PROVIDERS: ATTEND Family Medicine
DX: Z12.5 Encounter for screening for malignant neoplasm of prostate (principal); K22.70 Barrett's esophagus without dysplasia; E78.2 Mixed hyperlipidemia; E11.65 Type 2 diabetes mellitus with hyperglycemia
CPT/HCPCS: 80053; 80061; 82043; 83036; 85027; G0103

== ENCOUNTER → 2024-12-09 | Outpatient (CLI) | payer MEDICARE ==
[~2024-12-09] MED LIST changes: -EZET10TA21 PO; +EZET10TA57 PO; -FLOM0.4C39 PO; -PREG50CA PO; +PREG50CA87 PO; +TAMS-18 PO
[2024-12-09 12:35] LABS: ESTIMATED AVERAGE GLUCOSE 214.0 MG/DL (60-110)
[2024-12-09 12:54] LABS: CALCIUM LEVEL 10.0 MG/DL (8.3-10.6); CARBON DIOXIDE LEVEL 30.0 MMOL/L (20-31); CHLORIDE LEVEL 102.0 MMOL/L (98-107); CREATININE FOR GFR 0.95 MG/DL (0.70-1.30); GLOMERULAR FILTRATION RATE 84.5 (>42); POTASSIUM SERUM 4.4 MMOL/L (3.5-5.1); SODIUM LEVEL 142.0 MMOL/L (136-145)
== END ==
LOC: M WUC 10:21
PROVIDERS: ATTEND Family Medicine
DX: E11.649 Type 2 diabetes mellitus with hypoglycemia without coma (principal); E11.65 Type 2 diabetes mellitus with hyperglycemia; E11.628 Type 2 diabetes mellitus with other skin complications

== ENCOUNTER → 2025-03-30 | Outpatient (CLI) | payer MEDICARE ==
[~2025-03-30] MED LIST changes: -BACTDSTA PO; +SULF-8 PO
== END ==
LOC: M RAD 11:56
PROVIDERS: ATTEND Podiatrist Foot & Ankle Surgery
DX: I73.89 Other specified peripheral vascular diseases (principal)